=== PATIENT | male | born 1965 | race Two or more races ===

== ENCOUNTER 2016-11-03 09:16 | Inpatient (IN) | payer MEDICARE ==
[~2016-11-03] VITALS: Ht 177.8 cm; Wt 195.5 kg
[2016-11-03 09:30] VITALS: BP 112/70
--- NOTE | 2016-11-03 09:30 | Emergency Room Report ---
History of Present Illness General Chief Complaint: Chest Pain Source: Patient, EMS Present Illness HPI 51YOM BIBEMS from [facility] for acute onset SOB and substernal non- radiating chest pain when going to bathroom Was given ASA and SL nitro by EMS with improvement in symptoms Feels "ok" now. EMS rhythm strip shows ?atrial fib. No STEMI From paperwork, recent admission at [facility]: ECHO 2015: 50-55% 2016: 35-40% ?chronically elevated troponins Normal coronary angiogram april 2016 at [facility] Atrial Fib on Elliquis Allergies: Coded Allergies: PIOGLITAZONE (Verified Allergy, Unknown, 11/03/16) Uncoded Allergies: HYDROMORPHINE (Allergy, Unknown, 11/03/16) PLIOGLITAZONE (Allergy, Unknown, 11/03/16) Patient History Past Medical History: DM, HTN, CHF, AFib, other - cardiomyopathy, morbid obesity, PVD Past Surgical History: other - I&D of pressure ulcer Pertinent Family History: none Social History: Denies: alcohol use, drug use, smoking Immunizations: UTD Reviewed Nursing Documentation: PMH: Agreed, PSxH: Agreed Nursing Documentation-PMH Hx Hypertension: Yes - chf tia copd pvd Hx Diabetes: Yes Review of Systems All Other Systems: negative except mentioned in HPI Physical Exam Vital Signs Date Time Temp Pulse Resp B/P Pulse Ox O2 Delivery O2 Flow Rate FiO2 11/03/16 09:15 98.1 110 22 136/98 98 Room Air Sp02 EP Interpretation: reviewed, normal General Appearance: normal inspection, well appearing, no apparent distress, alert, GCS 15, non-toxic, obese Head: normocephalic Eyes: bilateral eye EOMI, bilateral eye PERRL ENT: normal ENT inspection, hearing grossly normal, normal voice Neck: normal inspection, full range of motion, supple, no bony tend Respiratory: normal inspection, lungs clear, normal breath sounds, no respiratory distress, no retraction, no wheezing Cardiovascular #1: regular rate, rhythm, no edema Gastrointestinal: normal inspection, normal bowel sounds, non tender, soft, no guarding, no hernia Genitourinary: no CVA tenderness Musculoskeletal: normal inspection, back normal, normal range of motion, Kyle' s Sign negative Neurologic: normal inspection, alert, oriented x3, responsive, grommet worker III-XII nml as tested, motor strength/tone normal, speech normal Psychiatric: normal inspection, judgement/insight normal, mood/affect normal Skin: normal inspection, normal color, no rash, other - Pressure dressings on left foot Medical Decision Making Diagnostic Impression: Primary Impression: Chest pain Qualified Codes: R07.9 - Chest pain, unspecified Additional Impression: CHF (congestive heart failure) Qualified Codes: I50.9 - Heart failure, unspecified ER Course Chest pain/SOB - VS with tachycardia. Not in Atrial fib with RVR - Will give low dose beta-minerva for elevated HR - patient not sure if he got Amiodarone 200mg this morning - CXR: Mild CHF. No PNA - Labs H&H stable. Mild leuks likely reactionary. Troponin 0. No metabolic abnormalities. BNP elevated Given Lasix for mild CHF exacerbation HR to 88 after low dose metoprolol Endorsed to Dr Torres at 1026am for tele admission EKG Diagnostic Results Rate: tachycardiac, other - 1st degree AV block Rhythm: NSR ST Segments: no acute changes ASA given to the pt in ED: No PA Scribe Text EMS gave aspirin Rhythm Strip Diag. Results EP Interpretation: yes Rate: 127 Rhythm: NSR, no ectopy, other - 1PVC Chest X-Ray Diagnostic Results Chest X-Ray Diagnostic Results : Chest X-Ray Ordered: Yes # of Views/Limited/Complete: 1 View Indication: Chest Pain EP Interpretation: Yes Interpretation: no consolidation, no pneumothorax, no acute cardiopulmonary disease, other - Mild CHF Interpreting ER Provider: Electronically signed by Dr Hi Last Vital Signs Date Time Temp Pulse Resp B/P Pulse Ox O2 Delivery O2 Flow Rate FiO2 11/03/16 09:15 98.1 110 22 136/98 98 Room Air Status: improved Disposition: ADMITTED INPATIENT Condition: HALI Wheeler M.D. Nov 03, 2016 09:30
[2016-11-03] MEDS ORDERED: Metoprolol 5mg/5ml Inj IVP STA (09:36)
[2016-11-03 09:41] LABS: BASOPHILS % (AUTO) 0.7 % (0.0-2.0); EOSINOPHILS % (AUTO) 3.7 % (0.0-3.0); LYMPHOCYTES % (AUTO) 12.2 % (20.0-45.0); MEAN CORPUSCULAR HEMOGLOBIN 22.1 PG (27.0-31.0); MEAN CORPUSCULAR VOLUME 79 FL (80-99); MEAN PLATELET VOLUME 7.2 FL (6.5-10.1); NEUTROPHILS % (AUTO) 79.4 % (45.0-75.0); PLATELET COUNT 303 K/UL (150-450); RED CELL DISTRIBUTION WIDTH 17.1 % (11.6-14.8); WHITE BLOOD COUNT 11.5 K/UL (4.8-10.8)
[2016-11-03 10:07] LABS: ALANINE AMINOTRANSFERASE 9 U/L (3-41); ALBUMIN/GLOBULIN RATIO 0.8 (1.0-2.7); ANION GAP 9 (5-15); ASPARTATE AMINO TRANSFERASE 30 U/L (5-40); CALCIUM 7.2 mg/dL (8.6-10.2); CARBON DIOXIDE 23 mEQ/L (20-30); CHLORIDE 105 mEQ/L (98-107); CREATININE 0.9 mg/dL (0.7-1.2); GLOMERULAR FILTRATION RATE > 60 mL/min (>60); HEMOLYSIS 147; POTASSIUM 4.9 mEQ/L (3.4-4.9); SODIUM 137 mEQ/L (135-145); TOTAL PROTEIN 5.8 g/dL (6.6-8.7); TROPONIN I < 0.30 ng/mL (<=0.30)
[2016-11-03 10:17] LABS: CKMB < 1.5 ng/mL (< 6.7)
--- NOTE | 2016-11-03 10:19 | Diagnostic Imaging Report ---
Indication: Cough Technique: XRAY CHEST 1 V Comparison:None Findings: The heart is enlarged. There is visualization of the major fissure on the left and opacification of the left lung base. Lungs are otherwise clear. Pulmonary vascularity is mildly prominent. The bones are unremarkable. Impression: Cardiomegaly. Left pleural effusion. Possibility of mild congestive heart failure cannot be excluded.
[2016-11-03] MEDS ORDERED: TRAMADOL HCL50 MG ORAL (10:25)
[2016-11-03] MEDS ORDERED: ECOTRIN81 MG PO (10:25)
[2016-11-03] MEDS ORDERED: VITAMIN D250000 UNI1 ORAL (10:25)
[2016-11-03] MEDS ORDERED: MAGOX 400400 MG ORAL (10:25)
[2016-11-03] MEDS ORDERED: HUMULIN R100 UNIT/1 SUBQ (10:25)
[2016-11-03] MEDS ORDERED: LANTUS SOL100 UNIT/1 SUBQ (10:25)
[2016-11-03] MEDS ORDERED: RESTORIL15 MG ORAL (10:25)
[2016-11-03] MEDS ORDERED: ACETAMINOPHEN120 MG RECTAL (10:25)
[2016-11-03] MEDS ORDERED: LANOXIN125 MCG ORAL (10:25)
[2016-11-03] MEDS ORDERED: ELIQUIS5 MG PO (10:25)
[2016-11-03] MEDS ORDERED: AMIODARONE HCL200 MG ORAL (10:25)
[2016-11-03] MEDS ORDERED: FUROSEMIDE40 MG ORAL (10:25)
[2016-11-03] MEDS ORDERED: CALCIUM CARBON200 M1 PO (10:25)
[2016-11-03] MEDS ORDERED: GERI-LANTA LIQ355 ML PO (10:25)
[2016-11-03] MEDS ORDERED: ACETAMINOPHEN325 M1 ORAL (10:25)
[2016-11-03 10:26] VITALS: BP 109/80
[2016-11-03 11:00] VITALS: BP 128/70
[2016-11-03] MEDS ORDERED: Miralax 17gm pkt ORAL PRN (12:00)
[2016-11-03] MEDS ORDERED: traMADol 50mg tab ORAL PRN (12:00)
[2016-11-03] MEDS ORDERED: Nitroglycerin Subl 0.4mg tab (Bottle Of 25) SL PRN (12:00)
[2016-11-03] MEDS ORDERED: Mylanta II UD 30ml ORAL PRN (12:00)
[2016-11-03] MEDS ORDERED: DuoNeb 0.5-3(2.5)mg/3ml neb HHN PRN (12:00)
--- NOTE | 2016-11-03 12:20 | Consultation ---
History of Present Illness General Date patient seen: Nov 03, 2016 Time patient seen: 11:00 Chief Complaint: Chest Pain Referring physician: dr Torres Reason for Consultation: inpatient management Present Illness HPI 51y/o male with PMH significant for A fib, HTN, DM, CHF, TIA, morbid obesity, COPD, sleep apnea BIBEMS from [facility] for acute onset of SOB and substernal non-radiating chest pain ASA and SL nitro given by EMS with improvement in symptoms Hanson slightly better EMS rhythm strip revealed ST No STEMI Recent admission at [facility]: ECHO results: 2014: 50-55% , 2016: 35-40% ?chronically elevated troponin Normal coronary angiogram in April 2016 at [facility] Atrial Fib on Eliquis workup in ED revealed mild likely reactive leukocytosis elevated pro BNP CXR with mild CHF ST on tele, no A fib in ED given low dose of BB with improvement in HR and Lasix patient was admitted for further management currently admits to intermittent chest pain, occasional SOB, on RA, pulse oximetry stable, + cough intermittent dry , no wheezing, no hemoptysis denies smoking, use of illicit drugs Allergies: Coded Allergies: HYDROMORPHONE (Unverified Allergy, Unknown, 11/03/16) PIOGLITAZONE (Verified Allergy, Unknown, 11/03/16) Uncoded Allergies: HYDROMORPHINE (Allergy, Unknown, 11/03/16) Medication History Scheduled Amiodarone Hcl* (Cordarone*), 200 MG ORAL DAILY, (Reported) Apixaban (Eliquis), 5 MG PO BID, (Reported) Aspirin (Ecotrin), 81 MG PO DAILY, (Reported) Digoxin* (Lanoxin*), 125 MCG ORAL DAILY, (Reported) Ergocalciferol (Vitamin D2)* (Vitamin D*), 50,000 UNIT ORAL ONCE A WEEK, ( Reported) Furosemide* (Lasix*), 40 MG ORAL TWICE A DAY, (Reported) Insulin Glargine (Lantus), 30 SUBQ DAILY, (Reported) Magnesium Oxide (Magox 400), 400 MG ORAL DAILY, (Reported) Scheduled PRN Acetaminophen* (Tylenol*), 120 MG RECTAL Q4H PRN for Mild Pain/Temp > 100.5, ( Reported) Acetaminophen* (Acetaminophen 325MG Tablet*), 650 MG ORAL Q4H PRN for For Pain, (Reported) Insulin Regular, Human (Humulin R), 0 SUBQ for sliding scale, (Reported) Mag Hydrox/Al Hydrox/Simeth (Sabina-Lanta Liquid), 30 ML PO EVERY 6 HOURS PRN for upset stomach, (Reported) Temazepam* (Restoril*), 15 MG ORAL BEDTIME PRN for Insomnia, (Reported) Tramadol Hcl* (Ultram*), 50 MG ORAL Q6H PRN for For Pain, (Reported) Miscellaneous Medications Calcium Carbonate (Calcium Carbonate), Unknown Dose PO, (Reported) Patient History Healthcare decision maker N Resuscitation status Advanced Directive on File Review of Systems Constitutional: Reports: weakness Eye: Reports: no symptoms ENT: Reports: no symptoms Respiratory: Reports: see HPI Cardiovascular: Reports: see HPI Gastrointestinal: Reports: no symptoms Genitourinary: Reports: no symptoms Musculoskeletal: Reports: no symptoms Skin: Reports: other - left lower leg wound after popped off blister Psychiatric: Reports: no symptoms Neurological: Reports: no symptoms Endocrine: Reports: other - DM Physical Exam General Appearance: WD/WN, alert, other - A/A/O x 4 morbidly obese Lines, tubes and drains: peripheral HEENT: normocephalic, atraumatic, anicteric, mucous membranes moist, PERRL, supple Neck: non-tender Respiratory/Chest: lungs clear - diminished BS Cardiovascular/Chest: tachycardia - ST on tele 120th Abdomen: normal bowel sounds, non tender, soft - obese Skin Exam: warm/dry, other - left lower leg wound Neurologic: abnormal gait, alert, oriented x 3, responsive, normal mood/affect Musculoskeletal: normal muscle bulk Last 24 Hour Vital Signs Date Time Temp Pulse Resp B/P Pulse Ox O2 Delivery O2 Flow Rate FiO2 11/03/16 11:25 98.1 126 15 109/80 98 Room Air 105 11/03/16 10:26 98.1 105 15 109/80 98 Room Air 11/03/16 10:26 105 15 Room Air 11/03/16 09:41 126 112/70 11/03/16 09:30 98.1 126 17 112/70 98 Room Air 11/03/16 09:15 98.1 110 22 136/98 98 Room Air Laboratory Tests Test 11/03/16 09:30 11/03/16 09:31 White Blood Count 11.5 K/UL (4.8-10.8) H Red Blood Count 5.60 M/UL (4.70-6.10) Hemoglobin 12.4 G/DL (14.2-18.0) L Hematocrit 44.1 % (42.0-52.0) Mean Corpuscular Volume 79 FL (80-99) L Mean Corpuscular Hemoglobin 22.1 PG (27.0-31.0) L Mean Corpuscular Hemoglobin Concent 28.0 G/DL (32.0-36.0) L Red Cell Distribution Width 17.1 % (11.6-14.8) H Platelet Count 303 K/UL (150-450) Mean Platelet Volume 7.2 FL (6.5-10.1) Neutrophils (%) (Auto) 79.4 % (45.0-75.0) H Lymphocytes (%) (Auto) 12.2 % (20.0-45.0) L Monocytes (%) (Auto) 4.0 % (1.0-10.0) Eosinophils (%) (Auto) 3.7 % (0.0-3.0) H Basophils (%) (Auto) 0.7 % (0.0-2.0) Sodium Level 137 mEQ/L (135-145) Potassium Level 4.9 mEQ/L (3.4-4.9) Chloride Level 105 mEQ/L (98-107) Carbon Dioxide Level 23 mEQ/L (20-30) Anion Gap 9 (5-15) Blood Urea Nitrogen 18 mg/dL (7-23) Creatinine 0.9 mg/dL (0.7-1.2) Estimat Glomerular Filtration Rate > 60 mL/min (>60) Glucose Level 179 mg/dL (74-106) H Calcium Level 7.2 mg/dL (8.6-10.2) L Total Bilirubin 0.8 mg/dL (0.0-1.2) Aspartate Amino Transf (AST/SGOT) 30 U/L (5-40) Alanine Aminotransferase (ALT/SGPT) 9 U/L (3-41) Alkaline Phosphatase 65 U/L (40-129) Total Creatine Kinase 30 U/L (38-174) L Creatine Kinase MB < 1.5 ng/mL (< 6.7) Creatine Kinase MB Relative Index 5.0 Troponin I < 0.30 ng/mL (<=0.30) Pro-B-Type Natriuretic Peptide 6307 pg/mL (0-125) H Total Protein 5.8 g/dL (6.6-8.7) L Albumin 2.6 g/dL (3.5-5.2) L Globulin 3.2 g/dL Albumin/Globulin Ratio 0.8 (1.0-2.7) L Urine Opiates Screen Negative (NEGATIVE) Urine Barbiturates Screen Negative (NEGATIVE) Phencyclidine (PCP) Screen Negative (NEGATIVE) Urine Amphetamines Screen Positive (NEGATIVE) H Urine Benzodiazepines Screen Negative (NEGATIVE) Urine Cocaine Screen Negative (NEGATIVE) Urine Marijuana (THC) Screen Negative (NEGATIVE) Height (Feet): 5 Height (Inches): 10.00 Weight (Pounds): 420 Medications Current Medications Medications (Trade) Dose Ordered Sig/Lexii Route PRN Reason Start Time Stop Time Status Last Admin Dose Admin Acetaminophen (Tylenol) 650 mg ONCE PRN ORAL For Pain 11/03/16 11:30 11/03/16 23:59 Dextrose (Dextrose 50%) STAT PRN IV Hypoglycemia 11/03/16 11:30 12/03/16 11:29 Assessment/Plan Assessment/Plan ASSESSMENT chest pain r/o ACS probably acute systolic and diastolic heart failure dilated cardiomyopathy PAF PVD morbid obesity MARBELLA DM Hx of HTN PVD COPD left lower leg wound possible abscess PLAN OF CARE tele serial troponin ECHO cardio eval per PMD Lasix gtt monitor renal parameters, lytes, I/O trend pro BNP, CXR O2 HHN prn, keep sat above 92% ASA A/coagulation with Eliquis ( as in SNF), rate control , continue Amiodarone and Digoxin medical management of CHF as per cardio check lipid panel, TSH, Mg BS management with SS of insulin, get HgA1c pain management podiatry eval for possible foot abscess wound nurse eval bowel regimen case discussed and evaluated by supervising physician Hasmukh Vega)Milana NP Nov 03, 2016 12:20
--- NOTE | 2016-11-03 14:21 | History & Physical ---
History and Physical History & Physicial Dictated for Int med-Dr Torres no. [id number]. AMITA NEAL Nov 03, 2016 14:21
[2016-11-03 15:52] LABS: TROPONIN I < 0.30 ng/mL (<=0.30)
[2016-11-03 16:00] VITALS: BP 136/81
--- NOTE | 2016-11-03 16:24 | Cardiac Electrophysiology PN ---
Subjective Subjective [id number]. EF 10%, PAF in SR, morbid obesity 420lbs Objective Last 24 Hour Vital Signs Date Time Temp Pulse Resp B/P Pulse Ox O2 Delivery O2 Flow Rate FiO2 11/03/16 12:00 94 11/03/16 11:43 115 11/03/16 11:25 98.1 126 15 109/80 98 Room Air 105 11/03/16 11:00 97.7 63 18 128/70 100 11/03/16 10:26 98.1 105 15 109/80 98 Room Air 11/03/16 10:26 105 15 Room Air 11/03/16 09:41 126 112/70 11/03/16 09:30 98.1 126 17 112/70 98 Room Air 11/03/16 09:15 98.1 110 22 136/98 98 Room Air Laboratory Tests Test 11/03/16 09:30 11/03/16 09:31 11/03/16 12:20 White Blood Count 11.5 K/UL (4.8-10.8) H Red Blood Count 5.60 M/UL (4.70-6.10) Hemoglobin 12.4 G/DL (14.2-18.0) L Hematocrit 44.1 % (42.0-52.0) Mean Corpuscular Volume 79 FL (80-99) L Mean Corpuscular Hemoglobin 22.1 PG (27.0-31.0) L Mean Corpuscular Hemoglobin Concent 28.0 G/DL (32.0-36.0) L Red Cell Distribution Width 17.1 % (11.6-14.8) H Platelet Count 303 K/UL (150-450) Mean Platelet Volume 7.2 FL (6.5-10.1) Neutrophils (%) (Auto) 79.4 % (45.0-75.0) H Lymphocytes (%) (Auto) 12.2 % (20.0-45.0) L Monocytes (%) (Auto) 4.0 % (1.0-10.0) Eosinophils (%) (Auto) 3.7 % (0.0-3.0) H Basophils (%) (Auto) 0.7 % (0.0-2.0) Sodium Level 137 mEQ/L (135-145) Potassium Level 4.9 mEQ/L (3.4-4.9) Chloride Level 105 mEQ/L (98-107) Carbon Dioxide Level 23 mEQ/L (20-30) Anion Gap 9 (5-15) Blood Urea Nitrogen 18 mg/dL (7-23) Creatinine 0.9 mg/dL (0.7-1.2) Estimat Glomerular Filtration Rate > 60 mL/min (>60) Glucose Level 179 mg/dL (74-106) H Calcium Level 7.2 mg/dL (8.6-10.2) L Total Bilirubin 0.8 mg/dL (0.0-1.2) Aspartate Amino Transf (AST/SGOT) 30 U/L (5-40) Alanine Aminotransferase (ALT/SGPT) 9 U/L (3-41) Alkaline Phosphatase 65 U/L (40-129) Total Creatine Kinase 30 U/L (38-174) L Creatine Kinase MB < 1.5 ng/mL (< 6.7) Creatine Kinase MB Relative Index 5.0 Troponin I < 0.30 ng/mL (<=0.30) < 0.30 ng/mL (<=0.30) Pro-B-Type Natriuretic Peptide 6307 pg/mL (0-125) H Total Protein 5.8 g/dL (6.6-8.7) L Albumin 2.6 g/dL (3.5-5.2) L Globulin 3.2 g/dL Albumin/Globulin Ratio 0.8 (1.0-2.7) L Urine Opiates Screen Negative (NEGATIVE) Urine Barbiturates Screen Negative (NEGATIVE) Phencyclidine (PCP) Screen Negative (NEGATIVE) Urine Amphetamines Screen Positive (NEGATIVE) H Urine Benzodiazepines Screen Negative (NEGATIVE) Urine Cocaine Screen Negative (NEGATIVE) Urine Marijuana (THC) Screen Negative (NEGATIVE) DAVID BRITO Nov 03, 2016 16:24
--- NOTE | 2016-11-03 16:30 | History and Physical Report ---
DATE OF ADMISSION: 11/03/2016 CHIEF COMPLAINT: The patient is a 51-year-old male, who presents with chief complaint of chest pain and shortness of breath. HISTORY OF PRESENT ILLNESS: The patient was admitted to [facility] in [place] in 09/2016. The patient was admitted with elevated troponin at that time. The patient has history of dilated cardiomyopathy. The patient was discharged to [facility]. According to the patient, he began to experience shortness of breath last evening. The patient then began to experience chest pain. Chest pain is substernal. There is no radiation to the jaw or to the shoulder. The patient was transported from [facility] to [place] [facility]. The patient was admitted for chest pain to rule out acute coronary syndrome. REVIEW OF SYSTEMS: Constitutional: The patient denies weight loss or weight gain. The patient denies fevers or chills. HEENT: The patient denies ear or throat pain. The patient denies headache. Cardiovascular: The patient complains of chest pain as above. The patient denies palpitations. Chest: The patient complains of shortness of breath as above. The patient denies wheezing. Abdomen: The patient denies nausea, vomiting, diarrhea, or constipation. Genitourinary: The patient denies dysuria or increased frequency of urination. Neuromuscular: The patient denies seizures or generalized weakness. PAST MEDICAL HISTORY: Significant for: 1. Nonischemic cardiomyopathy. 2. Congestive heart failure, systolic. 3. Atrial fibrillation. 4. Diabetes type 2. 5. Morbid obesity. 6. Chronic venous stasis changes in bilateral lower extremity. 7. Hypertension. 8. Hypercholesterolemia. 9. Peripheral vascular disease. 10. Chronic obstructive pulmonary disease. 11. Coronary artery disease, status post angiogram in 04/2016. PAST SURGICAL HISTORY: Significant for: 1. Coronary angiogram in 04/2016 as above. 2. Incision and drainage of left foot abscess. 3. Open cholecystectomy in the . CURRENT MEDICATIONS: 1. Calcium carbonate 2 tablets p.o. q.8 hours. 2. Amiodarone 200 mg one tablet p.o. daily. 3. Aspirin 81 mg one tablet p.o. daily. 4. Eliquis 5 mg p.o. twice daily. 5. Regular insulin sliding scale. 6. Digoxin 0.125 mg p.o. daily. 7. Lantus 30 units subcutaneously nightly. 8. Lasix 40 mg one tablet p.o. daily. 9. Magnesium oxide 400 mg one tablet p.o. daily. 10. Restoril 15 mg one tablet p.o. nightly. 11. Tramadol 50 mg one tablet p.o. q.6 hours p.r.n. 12. Tylenol 650 mg p.o. q.4 hours p.r.n. 13. Vitamin D2 50,000 units daily. ALLERGIES: To Dilaudid and Actos. SOCIAL HISTORY: The patient is . The patient is disabled. The patient denies tobacco or alcohol use. PHYSICAL EXAMINATION: VITAL SIGNS: Temperature 98.1, respirations 17-22, blood pressure 109-136 over 70-98, and pulse 105-126. GENERAL: The patient is well developed, well nourished, obese white male in no apparent distress. HEENT: Eyes, pupils are equal and responsive to light and accommodation. Extraocular movements are intact. NECK: Supple without lymphadenopathy. CHEST: Lungs are clear to auscultation bilaterally without wheezes or rales. CARDIOVASCULAR: Regular rhythm and rate. S1, S2 are normal without murmurs, rubs, or gallops. ABDOMEN: Soft, nontender, and nondistended. Positive bowel sounds. No evidence of hepatosplenomegaly. Currently, no rebound or guarding. EXTREMITIES: The left foot is in a dressing, otherwise extremities are without clubbing, cyanosis, or edema. RECTAL: Refused. GENITAL: Refused. NEUROLOGIC: Cranial nerves II through XII are grossly intact without focal deficits. Motor strength is 5/5 bilaterally. Deep tendon reflexes are 2+ plantar. LABORATORY STUDIES: WBC 11.5, hemoglobin 12.4, hematocrit 44.1, platelets 303,000. Sodium 137, potassium 4.9, chloride 105, CO2 23, BUN 18, creatinine 0.9, glucose 179. Troponin less than 0.3. BNP elevated at 6307. ASSESSMENT: This is a 51-year-old male with: 1. Chest pain. 2. Shortness of breath. 3. Nonischemic cardiomyopathy. 4. Systolic congestive heart failure. 5. Atrial fibrillation. 6. Left foot abscess. 7. Diabetes type 2. 8. Hypertension. 9. Hypercholesterolemia. 10. Peripheral vascular disease. 11. Obesity. 12. Chronic obstructive pulmonary disease. 13. Obstructive sleep apnea. TREATMENT: 1. Shortness of breath. This may be secondary to chest pain. Pulmonary consultation has been obtained with Dr. Ann Gongora. 2. Chest pain. Cardiology consultation obtained with Dr. Mehdi Little. Serial troponin levels will be run. This may be acute coronary syndrome given the history of coronary artery disease earlier in 2017. We will follow recommendations of Cardiology. 3. Nonischemic cardiomyopathy. 4. Systolic congestive heart failure. 5. Atrial fibrillation. Continue amiodarone and digoxin as above. Continue Eliquis as above. We will follow recommendation of Cardiology, Dr. Mehdi Little. 6. Left foot abscess. Podiatry consultation has been obtained with Dr. Xie. We will follow recommendation of podiatry. 7. Diabetes type 2. Continue NovoLog sliding scale and Lantus as above. 8. Hypertension. Continue Lasix as above. 9. Hypercholesterolemia. 10. Peripheral vascular disease. 11. Obesity. 12. Chronic obstructive pulmonary disease. See Pulmonary consultation by Dr. Ann Gongora. 13. Obstructive sleep apnea. See pulmonary consultation by Dr. Ann Gongora. Martir Vang M.D. DR: Ion JOB#: [id number] CC:
[2016-11-03] MEDS: NovoLOG Insulin Flexpen SUBQ SCH ×2 (18:06→21:23)
[2016-11-03] MEDS: Eliquis 2.5mg tablet ORAL SCH (18:24)
[2016-11-03 20:43] VITALS: BP 117/71
[2016-11-03] MEDS ORDERED: Heparin 5000 units/ml inj SUBQ SCH (21:00)
--- NOTE | 2016-11-03 23:30 | Consultation ---
DATE OF CONSULTATION: 11/03/2016 CARDIOLOGY CONSULTATION CONSULTING PHYSICIAN: Baljit Irvin M.D. REFERRING PHYSICIAN: Ann Gongora M.D. REASON FOR REFERRAL: Chest pain and cardiomyopathy. HISTORY OF PRESENT ILLNESS: This is a 51-year-old gentleman with history of multiple medical problems, basically cardiomyopathy, dilated in origin; atrial fibrillation; congestive heart failure, chronic and acute systolic, diastolic; chronic leg edema; diabetes; and massive overt obesity. Apparently, he was recently hospitalized at [facility]. He is known to have abnormal cardiac enzymes chronically and he has had a cardiac catheterization reportedly at [place] approximately 6 months ago and apparently normal coronaries reported on his prior report. Nevertheless, from the acute hospital, he was transferred to convalescent facility and unfortunately, it appears that he did not receive his diuretics initially until his started complaining and 7 to 10 days later, he was restarted on his diuretics. In the meantime, he started to get short of breath this morning. He was having some chest pains again and paramedics were summoned. The patient did get some nitroglycerin, which helped him somewhat. With the shortness of breath ongoing, he was transferred to the emergency room at the [facility] and has been admitted. He has been started on a Lasix drip since this morning and has had significant improvement in his symptoms. He has no dizziness or lightheadedness. He does not have any PND. He does have 2-pillow usage for basically his back, not for his orthopnea and not really ambulatory because of leg swelling and issues requiring dressings on this left foot, and no heart pounding or palpitation. PAST MEDICAL HISTORY: Listed in the chart as nonischemic cardiomyopathy; congestive heart failure, systolic; and history of cardiac arrhythmias, apparently atrial fibrillation, chronic in origin, on chronic anticoagulation. He has diabetes mellitus, morbid obesity, and history of transient ischemic attack. Apparently, there is a report here stating he had coronary angiogram also to evaluate his low ejection fraction, which showed him to have nonobstructive disease and he has had blisters on his feet, for which he has received some treatment including dressing changes and now is at a convalescent facility secondary to multiple pressure ulcers on the lower extremities. He has had a history of cholecystectomy according to his chart. ALLERGIES: He is allergic to Dilaudid and Actos. SOCIAL HISTORY: He does not smoke or drink. He used drugs. He is right now at a convalescent facility. Previously, he has been living at home. He is on disability. He is and he has used tobacco, alcohol, and drugs when he was a teenager he says. REVIEW OF SYSTEMS: Gastrointestinal: Positive for vomiting today. He has been constipated, part of the constipation resulted in him having to strain and have some bloody stools, otherwise negative. Genitourinary: Negative. Pulmonary: Negative. Constitutional: Negative. Neurologic: Negative. PHYSICAL EXAMINATION: GENERAL: A morbidly obese, young gentleman, in no apparent respiratory distress. He is on a Lasix drip. VITAL SIGNS: Blood pressure anywhere between 109/80 to 122/70, temperature is 98.1 degrees, and heart rate is 95 to 126. NECK: Supple. LUNGS: Appear to show very few crackles noted at the bases. Air entry appears to be fair. CARDIAC: Irregularly irregular. Tachycardic. No heaves or thrills noted. ABDOMEN: Obese. Positive bowel sounds. EXTREMITIES: 2+ edema of the lower extremities bilaterally. LABORATORY VALUES: White count is 11.5, hemoglobin 12.4, and platelet count of 303,000. Sodium is 137, potassium 4.9, chloride 105, bicarbonate 23, BUN of 18, creatinine 0.9, and glucose of 179. Two sets of cardiac enzymes are negative. Three hours apart, proBNP of 6300. Albumin of 2.6. Toxicology screen positive for amphetamines. IMAGING: Chest x-ray was performed today that showed cardiomegaly and left-sided pleural effusion. Telemetry shows atrial fibrillation, ventricular response at times elevated. EKG again shows atrial fibrillation, tachycardic at a rate of 128. His ejection fraction by echo that was performed, preliminary report, shows 10% to 15% ejection fraction, severe left ventricular enlargement, severe global hypokinesis being noted dilated IVC, and pulmonary artery systolic pressure of 46 based on the preliminary report. ASSESSMENT AND PLAN: 1. Acute congestive heart failure on chronic congestive heart failure. 2. Dilated cardiomyopathy. 3. Prominent atrial fibrillation. 4. History of transient ischemic attack. 5. Hypertension history. 6. Diabetes mellitus. 7. Hyperlipidemia. 8. Morbid obesity. 9. Chest pains with reportedly nonobstructive cardiac catheterization in [address] [place] Gongora, this patient was seen in cardiac consultation. I agree with the Jose bazan. He should be continued on at least low dose of BORIS inhibitors as possible. He is on amiodarone, although he appears to be in atrial fibrillation. I am not sure the amiodarone will do any good. He is on digoxin as well. He is on Eliquis to be continued and nitroglycerin seems to help him with the pain even though he has no significant coronary disease. If his blood pressure allows, long-acting nitrates may be considered. Continue with lipid-lowering medication. The patient will be followed. Further recommendations as become necessary. It appears that Dr. Little is also following the patient. He will likely require in the future an intracardiac defibrillator. I will see on an as needed basis. Baljit Irvin M.D. DR: Katy JOB#: [id number] CC:
[2016-11-04] VITALS (7 sets, daily range): BP systolic 116–138; BP diastolic 65–90
--- NOTE | 2016-11-04 00:45 | Consultation ---
DATE OF CONSULTATION: 11/03/2016 CARDIOLOGY CONSULTATION CONSULTING PHYSICIAN: Mehdi Little M.D. REFERRING PHYSICIAN: Kip Torres M.D. REASON FOR CONSULTATION: Management of hypertension, atrial fibrillation, and chest pain. HISTORY OF PRESENT ILLNESS: The patient is a 51-year-old gentleman with history of morbid obesity who used to be more than 600 pounds and currently is 421 pounds. The patient has a history of hypertension, diabetes, paroxysmal atrial fibrillation, as well as history of congestive heart failure, TIA, and morbid obesity. The patient was on Eliquis for atrial fibrillation . The patient also has COPD and sleep apnea. He was brought in from [facility] with acute onset of shortness of breath and chest pain. He was admitted and Cardiology consultation was obtained for further evaluation and management. REVIEW OF SYSTEMS: Performed and was negative other than what was mentioned in the history of present illness. PAST MEDICAL HISTORY: 1. Hypertension. 2. Diabetes. 3. Congestive heart failure. 4. TIA. 5. Paroxysmal atrial fibrillation. 6. Morbid obesity. 7. COPD. 8. Obstructive sleep apnea. FAMILY HISTORY: Noncontributory. SOCIAL HISTORY: He lives at a care home and does not smoke or drink alcohol. PHYSICAL EXAMINATION: VITAL SIGNS: Blood pressure 190/80, pulse 120, but subsequently improved to 94, respirations 18. NECK: Mild JVD. LUNGS: Decreased breath sounds. CARDIOVASCULAR: Distant heart sounds and irregular. No gallop or rub. ABDOMEN: Morbidly obese. EXTREMITIES: A 2+ pitting edema. LABORATORY DATA: His labs show white count 11.5, hemoglobin 12.4, and hematocrit 41. Sodium was 137, potassium 4.9, BUN 18, creatinine of 0.9, and glucose 179. Troponin negative x2. His BNP is 6307. His urine toxicology screen is positive for amphetamine. ASSESSMENT AND PLAN: 1. Chest pain. This is likely due to congestive heart failure in this patient with severe cardiomyopathy. His echocardiogram showed ejection fraction of only 10% to 15%. We will start him on IV Lasix drip at 10 mg/hour. We will add Coreg, lisinopril, and Aldactone to his medical regimen as well. After stabilization, the patient will need evaluation, I am not sure in view of his weight of more than 420 pounds that obviously he will not be able to walk on a treadmill. 2. Paroxysmal atrial fibrillation, currently in sinus rhythm/sinus tachycardia. Continue amiodarone 200 mg daily and Eliquis 5 mg b.i.d. The patient is also on digoxin 0.125 mg daily. 3. Hypertension, on Lasix and add Coreg, and add lisinopril and Aldactone to his medical regimen. 4. Morbid obesity, more than 420 pounds. 5. History of transient ischemic attack. 6. Diabetes. 7. History of sleep apnea. Thank very much, Dr. Torres, for allowing me to participate in the care of this patient. Please do not hesitate to contact me for any questions regarding my evaluation. Mehdi Little M.D. DR: PRINCE JOB#: [id number] CC:
[2016-11-04 06:45] LABS: ABG ALLEN TEST POSITIVE; ABG BASE EXCESS 4.9; ABG PCO2 44.3 mmHg (35.0-45.0)
[2016-11-04] MEDS: NovoLOG Insulin Flexpen SUBQ SCH ×4 (06:50→21:01)
[2016-11-04] MEDS: Digoxin 0.125mg tab ORAL SCH (09:16)
[2016-11-04] MEDS: Amiodarone 200mg tab ORAL SCH (09:16)
[2016-11-04] MEDS: Spironolactone 25mg tab ORAL SCH (09:16)
[2016-11-04] MEDS: Aspirin Baby 81mg ORAL SCH (09:16)
[2016-11-04] MEDS: Lisinopril 10mg tab ORAL SCH (09:17)
[2016-11-04] MEDS: Eliquis 2.5mg tablet ORAL SCH ×2 (09:20→18:39)
[2016-11-04 10:08] LABS: BASOPHILS % (AUTO) 2.5 % (0.0-2.0); EOSINOPHILS % (AUTO) 5.8 % (0.0-3.0); LYMPHOCYTES % (AUTO) 9.5 % (20.0-45.0); MEAN CORPUSCULAR HEMOGLOBIN 22.2 PG (27.0-31.0); MEAN CORPUSCULAR HGB CONC 28.1 G/DL (32.0-36.0); MEAN CORPUSCULAR VOLUME 79 FL (80-99); MEAN PLATELET VOLUME 7.1 FL (6.5-10.1); MONOCYTES % (AUTO) 7.6 % (1.0-10.0); NEUTROPHILS % (AUTO) 74.6 % (45.0-75.0); PLATELET COUNT 260 K/UL (150-450); RED BLOOD COUNT 5.43 M/UL (4.70-6.10); WHITE BLOOD COUNT 8.1 K/UL (4.8-10.8)
[2016-11-04 10:25] LABS: CALCIUM 8.7 mg/dL (8.6-10.2); CARBON DIOXIDE 28 mEQ/L (20-30); CHOLESTEROL 78 mg/dL (< 200); CHOLESTEROL/HDL RATIO 3.1 (3.3-4.4); CREATININE 1.2 mg/dL (0.7-1.2); GLOMERULAR FILTRATION RATE > 60 mL/min (>60); HEMOLYSIS 1; LDL CHOLESTEROL (CALC.) 37 mg/dL (60-99); MAGNESIUM 1.6 mg/dL (1.7-2.5)
[2016-11-04 10:40] LABS: ANION GAP 13 (5-15); CHLORIDE 97 mEQ/L (98-107); POTASSIUM 4.2 mEQ/L (3.4-4.9); SODIUM 138 mEQ/L (135-145)
[2016-11-04 11:00] LABS: TROPONIN I < 0.30 ng/mL (<=0.30)
--- NOTE | 2016-11-04 14:12 | Cardiology Progress Note ---
Assessment/Plan Assessment/Plan 1. Acute congestive heart failure on chronic congestive heart failure. 2. Dilated cardiomyopathy. 3. Permanent atrial fibrillation. 4. History of transient ischemic attack. 5. Hypertension history. 6. Diabetes mellitus. 7. Hyperlipidemia. 8. Morbid obesity. 9. Chest pains with reportedly nonobstructive cardiac catheterization in 2017 at [place]. alredy better on the lasix drip still with sig edema no myonecrosis labs ntoed eliquis adn rate control on acie ane bb not sure need amiod if perm afib but ok to use if paroxysmal afib Subjective Cardiovascular: Denies: chest pain, lightheadedness Respiratory: Reports: shortness of breath Gastrointestinal/Abdominal: Denies: abdominal pain Genitourinary: Denies: burning Objective Last 24 Hour Vital Signs Date Time Temp Pulse Resp B/P Pulse Ox O2 Delivery O2 Flow Rate FiO2 11/04/16 12:00 93 11/04/16 12:00 97.3 90 20 122/71 100 Room Air 11/04/16 09:17 94 124/65 11/04/16 09:17 124/65 11/04/16 09:16 94 11/04/16 08:00 97.3 94 19 124/65 95 Room Air 11/04/16 08:00 96 11/04/16 07:28 73 18 Room Air 11/04/16 04:00 94 11/04/16 04:00 97.7 73 18 116/65 99 Room Air 11/04/16 00:00 97.7 74 20 120/75 96 Room Air 11/04/16 00:00 104 11/03/16 21:22 78 117/71 11/03/16 20:43 97.5 78 20 117/71 95 Room Air 11/03/16 20:00 94 11/03/16 16:00 95.9 80 20 136/81 95 Room Air 11/03/16 16:00 93 General Appearance: no apparent distress, alert, obese Neck: supple Cardiovascular: irregularly irregular Respiratory/Chest: lungs clear, normal breath sounds Abdomen: normal bowel sounds, non tender, soft Extremities: moderate edema Intake and Output 11/03/16 11/04/16 19:00 07:00 Intake Total 40 ml 120 ml Output Total 200 ml 2052 ml Balance -160 ml -1932 ml IV Total 40 ml 120 ml Output Urine Total 200 ml 2052 ml # Voids 1 Laboratory Tests Test 11/04/16 06:30 11/04/16 09:45 Arterial Blood pH 7.440 (7.350-7.450) Arterial Blood Partial Pressure CO2 44.3 mmHg (35.0-45.0) Arterial Blood Partial Pressure O2 66.3 mmHg (75.0-100.0) L Arterial Blood HCO3 29.6 mmol/L (22.0-26.0) H Arterial Blood Oxygen Saturation 92.2 % (92.0-98.0) Arterial Blood Base Excess 4.9 Artie Test Positive White Blood Count 8.1 K/UL (4.8-10.8) Red Blood Count 5.43 M/UL (4.70-6.10) Hemoglobin 12.0 G/DL (14.2-18.0) L Hematocrit 42.9 % (42.0-52.0) Mean Corpuscular Volume 79 FL (80-99) L Mean Corpuscular Hemoglobin 22.2 PG (27.0-31.0) L Mean Corpuscular Hemoglobin Concent 28.1 G/DL (32.0-36.0) L Red Cell Distribution Width 17.0 % (11.6-14.8) H Platelet Count 260 K/UL (150-450) Mean Platelet Volume 7.1 FL (6.5-10.1) Neutrophils (%) (Auto) 74.6 % (45.0-75.0) Lymphocytes (%) (Auto) 9.5 % (20.0-45.0) L Monocytes (%) (Auto) 7.6 % (1.0-10.0) Eosinophils (%) (Auto) 5.8 % (0.0-3.0) H Basophils (%) (Auto) 2.5 % (0.0-2.0) H Sodium Level 138 mEQ/L (135-145) Potassium Level 4.2 mEQ/L (3.4-4.9) Chloride Level 97 mEQ/L (98-107) L Carbon Dioxide Level 28 mEQ/L (20-30) Anion Gap 13 (5-15) Blood Urea Nitrogen 22 mg/dL (7-23) Creatinine 1.2 mg/dL (0.7-1.2) Estimat Glomerular Filtration Rate > 60 mL/min (>60) Glucose Level 246 mg/dL (74-106) H Hemoglobin A1c 10.0 % (< 6.0) H Calcium Level 8.7 mg/dL (8.6-10.2) # Magnesium Level 1.6 mg/dL (1.7-2.5) L Troponin I < 0.30 ng/mL (<=0.30) Pro-B-Type Natriuretic Peptide 6633 pg/mL (0-125) H Triglycerides Level 81 mg/dL (< 150) Cholesterol Level 78 mg/dL (< 200) LDL Cholesterol 37 mg/dL (60-99) L HDL Cholesterol 25 mg/dL (> 60) Cholesterol/HDL Ratio 3.1 (3.3-4.4) L Thyroid Stimulating Hormone (TSH) 3.600 uIU/mL (0.300-4.500) Microbiology Date/Time Source Procedure Growth Status 11/03/16 08:05 Sacral Wound Gram Stain - Final Resulted 11/03/16 08:05 Sacral Wound Wound Culture - Preliminary Resulted ARI ROWLEY Nov 04, 2016 14:12
--- NOTE | 2016-11-04 14:49 | Internal Med Progress Note ---
Subjective Date of Service: Nov 04, 2016 Physician Name Amita Neal Attending Physician Kip Torres MD Current Medications Medications (Trade) Dose Ordered Sig/Lexii Route PRN Reason Start Time Stop Time Status Last Admin Dose Admin Acetaminophen (Tylenol) 650 mg Q4H PRN ORAL Mild Pain (Pain Scale 1-3) 11/03/16 12:00 12/03/16 11:59 Al Hydroxide/Mg Hydroxide 30 ml 30 ml Q6H PRN ORAL dyspepsia 11/03/16 12:00 12/03/16 11:59 Albuterol/ Ipratropium (DuoNeb 0.5-3(2.5)mg/3ml) 3 ml Q6H PRN HHN Shortness of Breath 11/03/16 12:00 11/08/16 11:59 Amiodarone HCl (Cordarone) 200 mg DAILY ORAL 11/04/16 09:00 12/04/16 08:59 11/04/16 09:16 Apixaban (Eliquis) 5 mg BID ORAL 11/03/16 18:00 12/03/16 17:59 11/04/16 09:20 Aspirin (ASA) 81 mg DAILY ORAL 11/04/16 09:00 12/04/16 08:59 11/04/16 09:16 Carvedilol (Coreg) 3.125 mg EVERY 12 HOURS ORAL 11/03/16 21:00 12/03/16 20:59 11/04/16 09:17 Dextrose (Dextrose 50%) STAT PRN IV Hypoglycemia 11/03/16 12:15 12/03/16 12:14 Digoxin (Lanoxin) 0.125 mg DAILY ORAL 11/04/16 09:00 12/04/16 08:59 11/04/16 09:16 Furosemide/ Dextrose (Lasix/D5W) 100 ml @ 10 mls/hr Q10H IV 11/03/16 14:00 12/03/16 13:59 11/04/16 10:43 Insulin Aspart (NovoLOG) BEFORE MEALS AND HS SUBQ 11/03/16 16:30 12/03/16 16:29 11/04/16 11:46 Lisinopril (Zestril) 10 mg DAILY ORAL 11/04/16 09:00 12/04/16 08:59 11/04/16 09:17 Nitroglycerin (Ntg) 0.4 mg Q5M PRN SL Prn Chest Pain 11/03/16 12:00 12/03/16 11:59 Ondansetron HCl (Zofran) 4 mg Q6H PRN IVP Nausea & Vomiting 11/03/16 12:00 12/03/16 11:59 Polyethylene Glycol (Miralax) 17 gm DAILYPRN PRN ORAL Constipation 11/03/16 12:00 12/03/16 11:59 Spironolactone (Aldactone) 25 mg DAILY ORAL 11/04/16 09:00 12/04/16 08:59 11/04/16 09:16 Temazepam (Restoril) 15 mg DAILYPRN PRN ORAL Insomnia 11/03/16 12:00 11/10/16 11:59 Tramadol HCl (Ultram) 50 mg Q6H PRN ORAL Moderate Pain (Pain Scale 4-6) 11/03/16 12:00 11/10/16 11:59 Allergies: Coded Allergies: HYDROMORPHONE (Unverified Allergy, Unknown, 11/03/16) PIOGLITAZONE (Verified Allergy, Unknown, 11/03/16) Uncoded Allergies: HYDROMORPHINE (Allergy, Unknown, 11/03/16) ROS Limited/Unobtainable: No Constitutional: Reports: no symptoms HEENT: Reports: no symptoms Cardiovascular: Reports: chest pain Respiratory: Reports: no symptoms Gastrointestinal/Abdominal: Reports: no symptoms Genitourinary: Reports: no symptoms Neurologic/Psychiatric: Reports: no symptoms Subjective 51 YO M admitted with shortness of breath and chest pain. Cover for Int Lang Torres Objective Last Vital Signs Date Time Temp Pulse Resp B/P Pulse Ox O2 Delivery O2 Flow Rate FiO2 11/04/16 12:00 93 11/04/16 12:00 97.3 20 122/71 100 Room Air General Appearance: no apparent distress, alert, obese EENT: PERRL/EOMI, normal ENT inspection Neck: non-tender, normal alignment, supple Cardiovascular: normal peripheral pulses, normal rate, regular rhythm, no gallop/murmur, no JVD Respiratory/Chest: chest wall non-tender, crackles/rales, rhonchi - bilaterally , expiratory wheezing Abdomen: normal bowel sounds, non tender, soft, no organomegaly, no mass Extremities: normal range of motion, non-tender Edema: trace edema Neurologic: speech communication instructor II-XII grossly normal, no motor/sensory deficits Skin: normal pigmentation, warm/dry Laboratory Tests Test 11/04/16 06:30 11/04/16 09:45 Arterial Blood pH 7.440 (7.350-7.450) Arterial Blood Partial Pressure CO2 44.3 mmHg (35.0-45.0) Arterial Blood Partial Pressure O2 66.3 mmHg (75.0-100.0) L Arterial Blood HCO3 29.6 mmol/L (22.0-26.0) H Arterial Blood Oxygen Saturation 92.2 % (92.0-98.0) Arterial Blood Base Excess 4.9 Artie Test Positive White Blood Count 8.1 K/UL (4.8-10.8) Red Blood Count 5.43 M/UL (4.70-6.10) Hemoglobin 12.0 G/DL (14.2-18.0) L Hematocrit 42.9 % (42.0-52.0) Mean Corpuscular Volume 79 FL (80-99) L Mean Corpuscular Hemoglobin 22.2 PG (27.0-31.0) L Mean Corpuscular Hemoglobin Concent 28.1 G/DL (32.0-36.0) L Red Cell Distribution Width 17.0 % (11.6-14.8) H Platelet Count 260 K/UL (150-450) Mean Platelet Volume 7.1 FL (6.5-10.1) Neutrophils (%) (Auto) 74.6 % (45.0-75.0) Lymphocytes (%) (Auto) 9.5 % (20.0-45.0) L Monocytes (%) (Auto) 7.6 % (1.0-10.0) Eosinophils (%) (Auto) 5.8 % (0.0-3.0) H Basophils (%) (Auto) 2.5 % (0.0-2.0) H Sodium Level 138 mEQ/L (135-145) Potassium Level 4.2 mEQ/L (3.4-4.9) Chloride Level 97 mEQ/L (98-107) L Carbon Dioxide Level 28 mEQ/L (20-30) Anion Gap 13 (5-15) Blood Urea Nitrogen 22 mg/dL (7-23) Creatinine 1.2 mg/dL (0.7-1.2) Estimat Glomerular Filtration Rate > 60 mL/min (>60) Glucose Level 246 mg/dL (74-106) H Hemoglobin A1c 10.0 % (< 6.0) H Calcium Level 8.7 mg/dL (8.6-10.2) # Magnesium Level 1.6 mg/dL (1.7-2.5) L Troponin I < 0.30 ng/mL (<=0.30) Pro-B-Type Natriuretic Peptide 6633 pg/mL (0-125) H Triglycerides Level 81 mg/dL (< 150) Cholesterol Level 78 mg/dL (< 200) LDL Cholesterol 37 mg/dL (60-99) L HDL Cholesterol 25 mg/dL (> 60) Cholesterol/HDL Ratio 3.1 (3.3-4.4) L Thyroid Stimulating Hormone (TSH) 3.600 uIU/mL (0.300-4.500) Microbiology Date/Time Source Procedure Growth Status 11/03/16 08:05 Sacral Wound Gram Stain - Final Resulted 11/03/16 08:05 Sacral Wound Wound Culture - Preliminary Resulted Intake and Output 11/03/16 11/04/16 19:00 07:00 Intake Total 40 ml 120 ml Output Total 200 ml 2052 ml Balance -160 ml -1932 ml IV Total 40 ml 120 ml Output Urine Total 200 ml 2052 ml # Voids 1 Assessment/Plan Problem List: (1) COPD (chronic obstructive pulmonary disease) (2) Sleep apnea, obstructive (3) SOB (shortness of breath) (4) Atrial fibrillation (5) Foot abscess, left (6) Diabetes mellitus type II, uncontrolled (7) HTN (hypertension) (8) Hypercholesteremia (9) Peripheral vascular disease (10) Morbid obesity with BMI of 60.0-69.9, adult (11) Chest pain (12) Acute exacerbation of CHF (congestive heart failure) AMITA NEAL Nov 04, 2016 14:49
--- NOTE | 2016-11-04 14:53 | Pulmonology Progress Note ---
Assessment/Plan Assessment/Plan ASSESSMENT chest pain due to CHF exacerbation r/o ACS -negative acute systolic and diastolic heart failure exacerbation severe dilated cardiomyopathy Permanent AF moderate pulmonary HTN PVD morbid obesity MARBELLA DM Hx of HTN PVD left lower leg wound, possible abscess PLAN OF CARE tele serial troponin x 3 negative ECHO with EF10-15% and RVSP of 45 c/w moderate pulmonary HTN as well as evidence of mild to moderate MR and TR cardio eval noted and appreciated Lasix gtt continue monitor renal parameters, lytes, I/O medical management of CHF with BB, BORIS, and Aldactone trend pro BNP, CXR will need to repeat ECHO in 3 months and if no improvement with medical management, will likely need AICD O2 HHN prn, keep sat above 92% ASA A/coagulation with Eliquis ( as in SNF), rate control , continue Amiodarone and Digoxin lipid panel-stable, TSH-stable, Mg-1.6, replace and check level in am BS management with SS of insulin, HgA1c -10, not at goal , monitor and optimize as needed pain management podiatry eval for possible foot abscess wound nurse eval bowel regimen case discussed and evaluated by supervising physician Subjective Allergies: Coded Allergies: HYDROMORPHONE (Unverified Allergy, Unknown, 11/03/16) PIOGLITAZONE (Verified Allergy, Unknown, 11/03/16) Uncoded Allergies: HYDROMORPHINE (Allergy, Unknown, 11/03/16) Subjective on Lasix drip no chest pain no SOB, reports some improvement Objective Last 24 Hour Vital Signs Date Time Temp Pulse Resp B/P Pulse Ox O2 Delivery O2 Flow Rate FiO2 11/04/16 12:00 93 11/04/16 12:00 97.3 90 20 122/71 100 Room Air 11/04/16 09:17 94 124/65 11/04/16 09:17 124/65 11/04/16 09:16 94 11/04/16 08:00 97.3 94 19 124/65 95 Room Air 11/04/16 08:00 96 11/04/16 07:28 73 18 Room Air 11/04/16 04:00 94 11/04/16 04:00 97.7 73 18 116/65 99 Room Air 11/04/16 00:00 97.7 74 20 120/75 96 Room Air 11/04/16 00:00 104 11/03/16 21:22 78 117/71 11/03/16 20:43 97.5 78 20 117/71 95 Room Air 11/03/16 20:00 94 11/03/16 16:00 95.9 80 20 136/81 95 Room Air 11/03/16 16:00 93 Intake and Output 11/03/16 11/04/16 19:00 07:00 Intake Total 40 ml 120 ml Output Total 200 ml 2052 ml Balance -160 ml -1932 ml IV Total 40 ml 120 ml Output Urine Total 200 ml 2052 ml # Voids 1 Objective General Appearance: WD/WN, alert, other - A/A/O x 4 morbidly obese Lines, tubes and drains: peripheral HEENT: normocephalic, atraumatic, anicteric, mucous membranes moist, PERRL, supple Neck: non-tender Respiratory/Chest: lungs clear - diminished BS Cardiovascular/Chest: irregular irregular, A fib on tele, rate controlled Abdomen: normal bowel sounds, non tender, soft - obese Skin Exam: warm/dry, other - left lower leg wound Neurologic: abnormal gait, alert, oriented x 3, responsive, normal mood/affect Musculoskeletal: normal muscle bulk Microbiology Date/Time Source Procedure Growth Status 11/03/16 08:05 Sacral Wound Gram Stain - Final Resulted 11/03/16 08:05 Sacral Wound Wound Culture - Preliminary Resulted Laboratory Tests 11/04/16 06:30: Arterial Blood pH 7.440, Arterial Blood Partial Pressure CO2 44.3, Arterial Blood Partial Pressure O2 66.3L, Arterial Blood HCO3 29.6H, Arterial Blood Oxygen Saturation 92.2, Arterial Blood Base Excess 4.9, Artie Test Positive 11/04/16 09:45: White Blood Count 8.1, Red Blood Count 5.43, Hemoglobin 12.0L, Hematocrit 42.9, Mean Corpuscular Volume 79L, Mean Corpuscular Hemoglobin 22.2L, Mean Corpuscular Hemoglobin Concent 28.1L, Red Cell Distribution Width 17.0H, Platelet Count 260, Mean Platelet Volume 7.1, Neutrophils (%) (Auto) 74.6, Lymphocytes (%) (Auto) 9.5L, Monocytes (%) (Auto) 7.6, Eosinophils (%) (Auto) 5.8H, Basophils (%) (Auto) 2.5H, Sodium Level 138, Potassium Level 4.2, Chloride Level 97L, Carbon Dioxide Level 28, Anion Gap 13, Blood Urea Nitrogen 22, Creatinine 1.2, Estimat Glomerular Filtration Rate > 60, Glucose Level 246H , Hemoglobin A1c 10.0H, Calcium Level 8.7#, Magnesium Level 1.6L, Troponin I < 0.30, Pro-B-Type Natriuretic Peptide 6633H, Triglycerides Level 81, Cholesterol Level 78, LDL Cholesterol 37L, HDL Cholesterol 25, Cholesterol/HDL Ratio 3.1L, Thyroid Stimulating Hormone (TSH) 3.600 Current Medications Medications (Trade) Dose Ordered Sig/Lexii Route PRN Reason Start Time Stop Time Status Last Admin Dose Admin Acetaminophen (Tylenol) 650 mg Q4H PRN ORAL Mild Pain (Pain Scale 1-3) 11/03/16 12:00 12/03/16 11:59 Al Hydroxide/Mg Hydroxide 30 ml 30 ml Q6H PRN ORAL dyspepsia 11/03/16 12:00 12/03/16 11:59 Albuterol/ Ipratropium (DuoNeb 0.5-3(2.5)mg/3ml) 3 ml Q6H PRN HHN Shortness of Breath 11/03/16 12:00 11/08/16 11:59 Amiodarone HCl (Cordarone) 200 mg DAILY ORAL 11/04/16 09:00 12/04/16 08:59 11/04/16 09:16 Apixaban (Eliquis) 5 mg BID ORAL 11/03/16 18:00 12/03/16 17:59 11/04/16 09:20 Aspirin (ASA) 81 mg DAILY ORAL 11/04/16 09:00 12/04/16 08:59 11/04/16 09:16 Carvedilol (Coreg) 3.125 mg EVERY 12 HOURS ORAL 11/03/16 21:00 12/03/16 20:59 11/04/16 09:17 Dextrose (Dextrose 50%) STAT PRN IV Hypoglycemia 11/03/16 12:15 12/03/16 12:14 Digoxin (Lanoxin) 0.125 mg DAILY ORAL 11/04/16 09:00 12/04/16 08:59 11/04/16 09:16 Furosemide/ Dextrose (Lasix/D5W) 100 ml @ 10 mls/hr Q10H IV 11/03/16 14:00 12/03/16 13:59 11/04/16 10:43 Insulin Aspart (NovoLOG) BEFORE MEALS AND HS SUBQ 11/03/16 16:30 12/03/16 16:29 11/04/16 11:46 Lisinopril (Zestril) 10 mg DAILY ORAL 11/04/16 09:00 12/04/16 08:59 11/04/16 09:17 Nitroglycerin (Ntg) 0.4 mg Q5M PRN SL Prn Chest Pain 11/03/16 12:00 12/03/16 11:59 Ondansetron HCl (Zofran) 4 mg Q6H PRN IVP Nausea & Vomiting 11/03/16 12:00 12/03/16 11:59 Polyethylene Glycol (Miralax) 17 gm DAILYPRN PRN ORAL Constipation 11/03/16 12:00 12/03/16 11:59 Spironolactone (Aldactone) 25 mg DAILY ORAL 11/04/16 09:00 12/04/16 08:59 11/04/16 09:16 Temazepam (Restoril) 15 mg DAILYPRN PRN ORAL Insomnia 11/03/16 12:00 11/10/16 11:59 Tramadol HCl (Ultram) 50 mg Q6H PRN ORAL Moderate Pain (Pain Scale 4-6) 11/03/16 12:00 11/10/16 11:59 Hasmukh CarrenoMilana sethi NP Nov 04, 2016 14:53
--- NOTE | 2016-11-04 14:54 | Internal Med Progress Note ---
Subjective Date of Service: Nov 04, 2016 Physician Name Amita Neal Attending Physician Kip Torres MD Current Medications Medications (Trade) Dose Ordered Sig/Lexii Route PRN Reason Start Time Stop Time Status Last Admin Dose Admin Acetaminophen (Tylenol) 650 mg Q4H PRN ORAL Mild Pain (Pain Scale 1-3) 11/03/16 12:00 12/03/16 11:59 Al Hydroxide/Mg Hydroxide 30 ml 30 ml Q6H PRN ORAL dyspepsia 11/03/16 12:00 12/03/16 11:59 Albuterol/ Ipratropium (DuoNeb 0.5-3(2.5)mg/3ml) 3 ml Q6H PRN HHN Shortness of Breath 11/03/16 12:00 11/08/16 11:59 Amiodarone HCl (Cordarone) 200 mg DAILY ORAL 11/04/16 09:00 12/04/16 08:59 11/04/16 09:16 Apixaban (Eliquis) 5 mg BID ORAL 11/03/16 18:00 12/03/16 17:59 11/04/16 09:20 Aspirin (ASA) 81 mg DAILY ORAL 11/04/16 09:00 12/04/16 08:59 11/04/16 09:16 Carvedilol (Coreg) 3.125 mg EVERY 12 HOURS ORAL 11/03/16 21:00 12/03/16 20:59 11/04/16 09:17 Dextrose (Dextrose 50%) STAT PRN IV Hypoglycemia 11/03/16 12:15 12/03/16 12:14 Digoxin (Lanoxin) 0.125 mg DAILY ORAL 11/04/16 09:00 12/04/16 08:59 11/04/16 09:16 Furosemide/ Dextrose (Lasix/D5W) 100 ml @ 10 mls/hr Q10H IV 11/03/16 14:00 12/03/16 13:59 11/04/16 10:43 Insulin Aspart (NovoLOG) BEFORE MEALS AND HS SUBQ 11/03/16 16:30 12/03/16 16:29 11/04/16 11:46 Lisinopril (Zestril) 10 mg DAILY ORAL 11/04/16 09:00 12/04/16 08:59 11/04/16 09:17 Nitroglycerin (Ntg) 0.4 mg Q5M PRN SL Prn Chest Pain 11/03/16 12:00 12/03/16 11:59 Ondansetron HCl (Zofran) 4 mg Q6H PRN IVP Nausea & Vomiting 11/03/16 12:00 12/03/16 11:59 Polyethylene Glycol (Miralax) 17 gm DAILYPRN PRN ORAL Constipation 11/03/16 12:00 12/03/16 11:59 Spironolactone (Aldactone) 25 mg DAILY ORAL 11/04/16 09:00 12/04/16 08:59 11/04/16 09:16 Temazepam (Restoril) 15 mg DAILYPRN PRN ORAL Insomnia 11/03/16 12:00 11/10/16 11:59 Tramadol HCl (Ultram) 50 mg Q6H PRN ORAL Moderate Pain (Pain Scale 4-6) 11/03/16 12:00 11/10/16 11:59 Allergies: Coded Allergies: HYDROMORPHONE (Unverified Allergy, Unknown, 11/03/16) PIOGLITAZONE (Verified Allergy, Unknown, 11/03/16) Uncoded Allergies: HYDROMORPHINE (Allergy, Unknown, 11/03/16) Subjective 51 YO M admitted with shortness of breath and chest pain. Cover for Int Med-Dr Torres. Await podiatry consult. Objective Last Vital Signs Date Time Temp Pulse Resp B/P Pulse Ox O2 Delivery O2 Flow Rate FiO2 11/04/16 12:00 93 11/04/16 12:00 97.3 20 122/71 100 Room Air Laboratory Tests Test 11/04/16 06:30 11/04/16 09:45 Arterial Blood pH 7.440 (7.350-7.450) Arterial Blood Partial Pressure CO2 44.3 mmHg (35.0-45.0) Arterial Blood Partial Pressure O2 66.3 mmHg (75.0-100.0) L Arterial Blood HCO3 29.6 mmol/L (22.0-26.0) H Arterial Blood Oxygen Saturation 92.2 % (92.0-98.0) Arterial Blood Base Excess 4.9 Artie Test Positive White Blood Count 8.1 K/UL (4.8-10.8) Red Blood Count 5.43 M/UL (4.70-6.10) Hemoglobin 12.0 G/DL (14.2-18.0) L Hematocrit 42.9 % (42.0-52.0) Mean Corpuscular Volume 79 FL (80-99) L Mean Corpuscular Hemoglobin 22.2 PG (27.0-31.0) L Mean Corpuscular Hemoglobin Concent 28.1 G/DL (32.0-36.0) L Red Cell Distribution Width 17.0 % (11.6-14.8) H Platelet Count 260 K/UL (150-450) Mean Platelet Volume 7.1 FL (6.5-10.1) Neutrophils (%) (Auto) 74.6 % (45.0-75.0) Lymphocytes (%) (Auto) 9.5 % (20.0-45.0) L Monocytes (%) (Auto) 7.6 % (1.0-10.0) Eosinophils (%) (Auto) 5.8 % (0.0-3.0) H Basophils (%) (Auto) 2.5 % (0.0-2.0) H Sodium Level 138 mEQ/L (135-145) Potassium Level 4.2 mEQ/L (3.4-4.9) Chloride Level 97 mEQ/L (98-107) L Carbon Dioxide Level 28 mEQ/L (20-30) Anion Gap 13 (5-15) Blood Urea Nitrogen 22 mg/dL (7-23) Creatinine 1.2 mg/dL (0.7-1.2) Estimat Glomerular Filtration Rate > 60 mL/min (>60) Glucose Level 246 mg/dL (74-106) H Hemoglobin A1c 10.0 % (< 6.0) H Calcium Level 8.7 mg/dL (8.6-10.2) # Magnesium Level 1.6 mg/dL (1.7-2.5) L Troponin I < 0.30 ng/mL (<=0.30) Pro-B-Type Natriuretic Peptide 6633 pg/mL (0-125) H Triglycerides Level 81 mg/dL (< 150) Cholesterol Level 78 mg/dL (< 200) LDL Cholesterol 37 mg/dL (60-99) L HDL Cholesterol 25 mg/dL (> 60) Cholesterol/HDL Ratio 3.1 (3.3-4.4) L Thyroid Stimulating Hormone (TSH) 3.600 uIU/mL (0.300-4.500) Microbiology Date/Time Source Procedure Growth Status 11/03/16 08:05 Sacral Wound Gram Stain - Final Resulted 11/03/16 08:05 Sacral Wound Wound Culture - Preliminary Resulted Intake and Output 11/03/16 11/04/16 19:00 07:00 Intake Total 40 ml 120 ml Output Total 200 ml 2052 ml Balance -160 ml -1932 ml IV Total 40 ml 120 ml Output Urine Total 200 ml 2052 ml # Voids 1 Assessment/Plan Problem List: (1) COPD (chronic obstructive pulmonary disease) Assessment & Plan: See pulmonary note. (2) Sleep apnea, obstructive (3) SOB (shortness of breath) (4) Atrial fibrillation Assessment & Plan: See cardiology note. Cont amiodarone and digoxin. (5) Foot abscess, left Assessment & Plan: Await podiatry consult. (6) Diabetes mellitus type II, uncontrolled (7) HTN (hypertension) Assessment & Plan: Continue lisinopril. (8) Hypercholesteremia (9) Peripheral vascular disease (10) Morbid obesity with BMI of 60.0-69.9, adult (11) Chest pain Assessment & Plan: See cardiology note. (12) Acute exacerbation of CHF (congestive heart failure) Assessment & Plan: LVEF=10-15%. See cardiology note. (13) Cardiomyopathy Status: not improved AMITA NEAL Nov 04, 2016 14:54
--- NOTE | 2016-11-04 15:04 | Cardiology Report ---
APPROVED REPORT EXAM: Two-dimensional and M-mode echocardiogram with Doppler and color Doppler. INDICATION Chest Pain M-Mode DIMENSIONS IVSd1.5 (0.7-1.1cm)Left Atrium (MM)4.6 (1.6-4.0cm) LVDd6.4 (3.5-5.6cm)Aortic Root2.9 (2.0-3.7cm) PWd1.1 (0.7-1.1cm)Aortic Cusp Exc.2.0 (1.5-2.0cm) LVDs5.6 (2.5-4.0cm) PWs1.3 cm Severe left ventricular enlargement by 2D. Severe global left ventricular hypokinesis. Left ventricular ejection fraction estimated to be 10-15 %. Mild left ventricular hypertrophy. Trivial pericardial effusion. Large pleural effusion. Mild bi-atrial enlargement. Mild right ventricular enlargement. Mild focal aortic valve sclerosis with adequate cusp excursion. Mildly thickened mitral valve leaflets with normal excursion. Mild mitral annulus and aortic root calcification. Normal pulmonic valve structure. Normal tricuspid valve structure. IVC dilated at 2.5 cm with physiologic collapse. A color flow and spectral Doppler study was performed and revealed: Trace aortic regurgitation. Moderate eccentric mitral regurgitation. Left ventricular diastolic function could not be determined due to A-Fib. Moderate to severe tricuspid regurgitation. Tricuspid systolic velocities suggests peak right ventricular systolic pressure of 46 mmHg, consistent with moderate pulmonary hypertension. Mild pulmonic regurgitation present.
--- NOTE | 2016-11-04 16:20 | Cardiology Report ---
APPROVED REPORT EKG Measurement Heart [id number] Sinus tachycardia with 1st degree AV block Nonspecific T wave abnormality Abnormal ECG
[2016-11-05 04:00] VITALS: BP 130/81
[2016-11-05] MEDS: NovoLOG Insulin Flexpen SUBQ SCH ×4 (06:44→20:38)
[2016-11-05 07:45] LABS: BASOPHILS % (AUTO) 1.4 % (0.0-2.0); EOSINOPHILS % (AUTO) 7.1 % (0.0-3.0); MEAN CORPUSCULAR HEMOGLOBIN 23.7 PG (27.0-31.0); MEAN CORPUSCULAR HGB CONC 30.2 G/DL (32.0-36.0); MEAN CORPUSCULAR VOLUME 79 FL (80-99); MEAN PLATELET VOLUME 7.8 FL (6.5-10.1); MONOCYTES % (AUTO) 7.3 % (1.0-10.0); NEUTROPHILS % (AUTO) 71.3 % (45.0-75.0); PLATELET COUNT 245 K/UL (150-450); RED BLOOD COUNT 5.03 M/UL (4.70-6.10); WHITE BLOOD COUNT 8.8 K/UL (4.8-10.8)
[2016-11-05 08:00] VITALS: BP 131/76
[2016-11-05] MEDS: Aspirin Baby 81mg ORAL SCH (09:02)
[2016-11-05] MEDS: Amiodarone 200mg tab ORAL SCH (09:02)
[2016-11-05] MEDS: Spironolactone 25mg tab ORAL SCH (09:02)
[2016-11-05] MEDS: Eliquis 2.5mg tablet ORAL SCH ×2 (09:03→17:26)
[2016-11-05] MEDS: Lisinopril 10mg tab ORAL SCH (09:08)
[2016-11-05] MEDS: Digoxin 0.125mg tab ORAL SCH (09:08)
[2016-11-05 09:48] LABS: ANION GAP 15 (5-15); CARBON DIOXIDE 28 mEQ/L (20-30); CHLORIDE 97 mEQ/L (98-107); CREATININE 1.2 mg/dL (0.7-1.2); GLOMERULAR FILTRATION RATE > 60 mL/min (>60); HEMOLYSIS 3; POTASSIUM 3.8 mEQ/L (3.4-4.9); SODIUM 140 mEQ/L (135-145)
--- NOTE | 2016-11-05 10:37 | Consultation ---
Consult Note Consult Note PODIATRY CONSULT CONSULTING PHYSICIAN: Jaylon Henderson DPM COVERING FOR: Edson Xie DPM REASON FOR CONSULT: Left foot blister HISTORY OF PRESENT ILLNESS: Patient is a pleasant 51 year old male with a history of left foot blister. Patient believes that the blister was caused by contaminated water at his house. He reports that the blister was lanced at another hospital and daily dressing changes are being performed. No nausea, vomiting fevers, or chills ALLERGIES: Hydromorphine, hydromorphone, pioglitazone PAST MEDICAL HISTORY: HTN, CHF, AFIB, T2DM, hyperlipidemia, PVD, COPD, CAD MEDICATIONS: Reviewed. Please refer to chart for details FAMILY AND SURGICAL HISTORY: No pertinent findings SOCIAL HISTORY: No current tobacco, alcohol, or illicit drug use Last 24 Hour Vital Signs Date Time Temp Pulse Resp B/P Pulse Ox O2 Delivery O2 Flow Rate FiO2 11/05/16 09:08 80 130/80 11/05/16 09:08 130/80 11/05/16 09:08 80 11/05/16 08:39 75 20 Room Air 11/05/16 08:00 91 11/05/16 08:00 97.3 80 20 131/76 97 Room Air 11/05/16 04:00 97.0 97 18 130/81 97 Room Air 11/05/16 04:00 92 11/05/16 00:00 103 11/04/16 23:39 97.9 92 18 132/90 97 Room Air 11/04/16 21:03 100 113/60 11/04/16 20:35 88 20 Room Air 11/04/16 20:00 97.8 97 20 138/77 91 Room Air 11/04/16 20:00 97 11/04/16 16:00 89 11/04/16 16:00 96.3 88 21 129/78 95 Room Air 11/04/16 12:00 93 11/04/16 12:00 97.3 90 20 122/71 100 Room Air Laboratory Tests Test 11/05/16 06:20 White Blood Count 8.8 K/UL (4.8-10.8) Red Blood Count 5.03 M/UL (4.70-6.10) Hemoglobin 11.9 G/DL (14.2-18.0) L Hematocrit 39.5 % (42.0-52.0) L Mean Corpuscular Volume 79 FL (80-99) L Mean Corpuscular Hemoglobin 23.7 PG (27.0-31.0) L Mean Corpuscular Hemoglobin Concent 30.2 G/DL (32.0-36.0) L Red Cell Distribution Width 17.0 % (11.6-14.8) H Platelet Count 245 K/UL (150-450) Mean Platelet Volume 7.8 FL (6.5-10.1) Neutrophils (%) (Auto) 71.3 % (45.0-75.0) Lymphocytes (%) (Auto) 13.0 % (20.0-45.0) L Monocytes (%) (Auto) 7.3 % (1.0-10.0) Eosinophils (%) (Auto) 7.1 % (0.0-3.0) H Basophils (%) (Auto) 1.4 % (0.0-2.0) Sodium Level 140 mEQ/L (135-145) Potassium Level 3.8 mEQ/L (3.4-4.9) Chloride Level 97 mEQ/L (98-107) L Carbon Dioxide Level 28 mEQ/L (20-30) Anion Gap 15 (5-15) Blood Urea Nitrogen 23 mg/dL (7-23) Creatinine 1.2 mg/dL (0.7-1.2) Estimat Glomerular Filtration Rate > 60 mL/min (>60) Glucose Level 183 mg/dL (74-106) H Calcium Level 9.0 mg/dL (8.6-10.2) Magnesium Level 1.3 mg/dL (1.7-2.5) L Pro-B-Type Natriuretic Peptide 5680 pg/mL (0-125) H Microbiology Date/Time Source Procedure Growth Status 11/03/16 10:33 Nasal Nares MRSA Culture - Final Staphylococcus Aureus - Mrsa Complete 11/03/16 10:33 Rectum VRE Culture - Final Enterococcus Faecalis - Vre Complete PHYSICAL EXAM: DERM: Left foot dry resolving blister. No surrounding erythema or edema. Multiple small areas of dry stable eschars on bilateral legs NEURO: Sensation in tact to light touch VASC: Pedal pulses palpable MSK: Bilateral foot and ankle muscle strength appropriate for age . Assessment/Plan ASSESSMENT: - Left foot resolving blister and multiple small areas of bilateral leg stable eschars. The wounds do not appear to be clinically infected PLAN: - Continue daily wound care. Once there is no drainage okay to keep wounds open to air - Nursing staff to inform podiatry service if any acute changes or worsening occurs - Offload heels Jaylon Henderson DPM Nov 05, 2016 10:37
[2016-11-05 12:00] VITALS: BP 114/71
--- NOTE | 2016-11-05 12:14 | Diagnostic Imaging Report ---
Indication: Dyspnea Comparison: 11/03/16 A single view chest radiograph was obtained. Findings: Some vascular prominence demonstrated once again. There is evidence of a left pleural effusion. Cardiomegaly is relatively stable. Impression: Mild interstitial edema may be present. No definite change
--- NOTE | 2016-11-05 12:36 | Internal Med Progress Note ---
Subjective Date of Service: Nov 05, 2016 Physician Name Amita Neal Attending Physician Kip Torres MD Current Medications Medications (Trade) Dose Ordered Sig/Lexii Route PRN Reason Start Time Stop Time Status Last Admin Dose Admin Acetaminophen (Tylenol) 650 mg Q4H PRN ORAL Mild Pain (Pain Scale 1-3) 11/03/16 12:00 12/03/16 11:59 Al Hydroxide/Mg Hydroxide 30 ml 30 ml Q6H PRN ORAL dyspepsia 11/03/16 12:00 12/03/16 11:59 Albuterol/ Ipratropium (DuoNeb 0.5-3(2.5)mg/3ml) 3 ml Q6H PRN HHN Shortness of Breath 11/03/16 12:00 11/08/16 11:59 Amiodarone HCl (Cordarone) 200 mg DAILY ORAL 11/04/16 09:00 12/04/16 08:59 11/05/16 09:02 Apixaban (Eliquis) 5 mg BID ORAL 11/03/16 18:00 12/03/16 17:59 11/05/16 09:03 Aspirin (ASA) 81 mg DAILY ORAL 11/04/16 09:00 12/04/16 08:59 11/05/16 09:02 Carvedilol (Coreg) 3.125 mg EVERY 12 HOURS ORAL 11/03/16 21:00 12/03/16 20:59 11/05/16 09:08 Dextrose (Dextrose 50%) STAT PRN IV Hypoglycemia 11/03/16 12:15 12/03/16 12:14 Digoxin (Lanoxin) 0.125 mg DAILY ORAL 11/04/16 09:00 12/04/16 08:59 11/05/16 09:08 Furosemide/ Dextrose (Lasix/D5W) 100 ml @ 10 mls/hr Q10H IV 11/03/16 14:00 12/03/16 13:59 11/05/16 06:43 Insulin Aspart (NovoLOG) BEFORE MEALS AND HS SUBQ 11/03/16 16:30 12/03/16 16:29 11/05/16 11:16 Lisinopril (Zestril) 10 mg DAILY ORAL 11/04/16 09:00 12/04/16 08:59 11/05/16 09:08 Nitroglycerin (Ntg) 0.4 mg Q5M PRN SL Prn Chest Pain 11/03/16 12:00 12/03/16 11:59 Ondansetron HCl (Zofran) 4 mg Q6H PRN IVP Nausea & Vomiting 11/03/16 12:00 12/03/16 11:59 Polyethylene Glycol (Miralax) 17 gm DAILYPRN PRN ORAL Constipation 11/03/16 12:00 12/03/16 11:59 Spironolactone (Aldactone) 25 mg DAILY ORAL 11/04/16 09:00 12/04/16 08:59 11/05/16 09:02 Temazepam (Restoril) 15 mg DAILYPRN PRN ORAL Insomnia 11/03/16 12:00 11/10/16 11:59 Tramadol HCl (Ultram) 50 mg Q6H PRN ORAL Moderate Pain (Pain Scale 4-6) 11/03/16 12:00 11/10/16 11:59 Allergies: Coded Allergies: HYDROMORPHONE (Unverified Allergy, Unknown, 11/03/16) PIOGLITAZONE (Verified Allergy, Unknown, 11/03/16) Uncoded Allergies: HYDROMORPHINE (Allergy, Unknown, 11/03/16) ROS Limited/Unobtainable: No Constitutional: Reports: no symptoms HEENT: Reports: no symptoms Cardiovascular: Reports: chest pain Respiratory: Reports: no symptoms Gastrointestinal/Abdominal: Reports: no symptoms Genitourinary: Reports: no symptoms Neurologic/Psychiatric: Reports: no symptoms Subjective 51 YO M admitted with shortness of breath and chest pain. Cover for Int Lang Torres Objective Last Vital Signs Date Time Temp Pulse Resp B/P Pulse Ox O2 Delivery O2 Flow Rate FiO2 11/05/16 09:08 80 130/80 11/05/16 08:39 20 Room Air 11/05/16 08:00 97.3 97 Laboratory Tests Test 11/05/16 06:20 White Blood Count 8.8 K/UL (4.8-10.8) Red Blood Count 5.03 M/UL (4.70-6.10) Hemoglobin 11.9 G/DL (14.2-18.0) L Hematocrit 39.5 % (42.0-52.0) L Mean Corpuscular Volume 79 FL (80-99) L Mean Corpuscular Hemoglobin 23.7 PG (27.0-31.0) L Mean Corpuscular Hemoglobin Concent 30.2 G/DL (32.0-36.0) L Red Cell Distribution Width 17.0 % (11.6-14.8) H Platelet Count 245 K/UL (150-450) Mean Platelet Volume 7.8 FL (6.5-10.1) Neutrophils (%) (Auto) 71.3 % (45.0-75.0) Lymphocytes (%) (Auto) 13.0 % (20.0-45.0) L Monocytes (%) (Auto) 7.3 % (1.0-10.0) Eosinophils (%) (Auto) 7.1 % (0.0-3.0) H Basophils (%) (Auto) 1.4 % (0.0-2.0) Sodium Level 140 mEQ/L (135-145) Potassium Level 3.8 mEQ/L (3.4-4.9) Chloride Level 97 mEQ/L (98-107) L Carbon Dioxide Level 28 mEQ/L (20-30) Anion Gap 15 (5-15) Blood Urea Nitrogen 23 mg/dL (7-23) Creatinine 1.2 mg/dL (0.7-1.2) Estimat Glomerular Filtration Rate > 60 mL/min (>60) Glucose Level 183 mg/dL (74-106) H Calcium Level 9.0 mg/dL (8.6-10.2) Magnesium Level 1.3 mg/dL (1.7-2.5) L Pro-B-Type Natriuretic Peptide 5680 pg/mL (0-125) H Microbiology Date/Time Source Procedure Growth Status 11/03/16 10:33 Nasal Nares MRSA Culture - Final Staphylococcus Aureus - Mrsa Complete 11/03/16 10:33 Rectum VRE Culture - Final Enterococcus Faecalis - Vre Complete 11/03/16 08:05 Sacral Wound Gram Stain - Final Resulted 11/03/16 08:05 Wound Culture - Preliminary Staphylococcus Aureus - Mrsa Escherichia Coli Resulted Intake and Output 11/04/16 11/05/16 19:00 07:00 Intake Total 620 ml 966.6 ml Output Total 1800 ml 2050 ml Balance -1180 ml -1083.4 ml Intake Oral 500 ml 860 ml IV Total 120 ml 106.6 ml Output Urine Total 1800 ml 2050 ml Objective General Appearance: no apparent distress, alert, obese EENT: PERRL/EOMI, normal ENT inspection Neck: non-tender, normal alignment, supple Cardiovascular: normal peripheral pulses, normal rate, regular rhythm, no gallop/murmur, no JVD Respiratory/Chest: chest wall non-tender, crackles/rales, rhonchi - bilaterally , expiratory wheezing Abdomen: normal bowel sounds, non tender, soft, no organomegaly, no mass Extremities: normal range of motion, non-tender Edema: trace edema Neurologic: machine sprayer II-XII grossly normal, no motor/sensory deficits Skin: normal pigmentation, warm/dry Assessment/Plan Problem List: (1) COPD (chronic obstructive pulmonary disease) Assessment & Plan: See pulmonary note. (2) Sleep apnea, obstructive (3) SOB (shortness of breath) (4) Atrial fibrillation Assessment & Plan: See cardiology note. Cont amiodarone and digoxin. (5) Foot abscess, left Assessment & Plan: See podiatry consult. (6) Diabetes mellitus type II, uncontrolled (7) HTN (hypertension) Assessment & Plan: Continue lisinopril. (8) Hypercholesteremia (9) Peripheral vascular disease (10) Morbid obesity with BMI of 60.0-69.9, adult (11) Chest pain Assessment & Plan: See cardiology note. (12) Acute exacerbation of CHF (congestive heart failure) Assessment & Plan: LVEF=10-15%. See cardiology note. (13) Cardiomyopathy Status: not improved AMITA NEAL Nov 05, 2016 12:36
[2016-11-05 12:59] LABS: TROPONIN I < 0.30 ng/mL (<=0.30)
--- NOTE | 2016-11-05 13:35 | Pulmonology Progress Note ---
Assessment/Plan Problems: (1) Atrial fibrillation (2) End-stage systolic heart failure (3) EF 10% (4) Foot abscess, left (5) Diabetes mellitus type II, uncontrolled (6) Morbid obesity with BMI of 60.0-69.9, adult Assessment/Plan continue diuretics check electrolytes heart rate controlled wound care on apixiban Subjective ROS Limited/Unobtainable: No Interval Events: less short of breath, on lasix drip Allergies: Coded Allergies: HYDROMORPHONE (Unverified Allergy, Unknown, 11/03/16) PIOGLITAZONE (Verified Allergy, Unknown, 11/03/16) Uncoded Allergies: HYDROMORPHINE (Allergy, Unknown, 11/03/16) Objective Last 24 Hour Vital Signs Date Time Temp Pulse Resp B/P Pulse Ox O2 Delivery O2 Flow Rate FiO2 11/05/16 12:00 97.9 87 20 114/71 95 Room Air 11/05/16 12:00 90 11/05/16 09:08 80 130/80 11/05/16 09:08 130/80 11/05/16 09:08 80 11/05/16 08:39 75 20 Room Air 11/05/16 08:00 91 11/05/16 08:00 97.3 80 20 131/76 97 Room Air 11/05/16 04:00 97.0 97 18 130/81 97 Room Air 11/05/16 04:00 92 11/05/16 00:00 103 11/04/16 23:39 97.9 92 18 132/90 97 Room Air 11/04/16 21:03 100 113/60 11/04/16 20:35 88 20 Room Air 11/04/16 20:00 97.8 97 20 138/77 91 Room Air 11/04/16 20:00 97 11/04/16 16:00 89 11/04/16 16:00 96.3 88 21 129/78 95 Room Air Intake and Output 11/04/16 11/05/16 19:00 07:00 Intake Total 620 ml 966.6 ml Output Total 1800 ml 2050 ml Balance -1180 ml -1083.4 ml Intake Oral 500 ml 860 ml IV Total 120 ml 106.6 ml Output Urine Total 1800 ml 2050 ml General Appearance: WD/WN HEENT: normocephalic, atraumatic Respiratory/Chest: chest wall non-tender, lungs clear Cardiovascular: normal peripheral pulses, normal rate Abdomen: normal bowel sounds, soft, non tender Extremities: no cyanosis Skin: no rash Neurologic/Psychiatric: mechanic insulator II-XII grossly normal, no motor/sensory deficits Microbiology Date/Time Source Procedure Growth Status 11/03/16 10:33 Nasal Nares MRSA Culture - Final Staphylococcus Aureus - Mrsa Complete 11/03/16 10:33 Rectum VRE Culture - Final Enterococcus Faecalis - Vre Complete 11/03/16 08:05 Sacral Wound Gram Stain - Final Resulted 11/03/16 08:05 Wound Culture - Preliminary Staphylococcus Aureus - Mrsa Escherichia Coli Resulted Laboratory Tests 11/05/16 06:20: White Blood Count 8.8, Red Blood Count 5.03, Hemoglobin 11.9L, Hematocrit 39.5L , Mean Corpuscular Volume 79L, Mean Corpuscular Hemoglobin 23.7L, Mean Corpuscular Hemoglobin Concent 30.2L, Red Cell Distribution Width 17.0H, Platelet Count 245, Mean Platelet Volume 7.8, Neutrophils (%) (Auto) 71.3, Lymphocytes (%) (Auto) 13.0L, Monocytes (%) (Auto) 7.3, Eosinophils (%) (Auto) 7.1H, Basophils (%) (Auto) 1.4, Sodium Level 140, Potassium Level 3.8, Chloride Level 97L, Carbon Dioxide Level 28, Anion Gap 15, Blood Urea Nitrogen 23, Creatinine 1.2, Estimat Glomerular Filtration Rate > 60, Glucose Level 183H, Calcium Level 9.0, Magnesium Level 1.3L, Pro-B-Type Natriuretic Peptide 5680H 11/05/16 12:00: Troponin I < 0.30 Current Medications Medications (Trade) Dose Ordered Sig/Lexii Route PRN Reason Start Time Stop Time Status Last Admin Dose Admin Acetaminophen (Tylenol) 650 mg Q4H PRN ORAL Mild Pain (Pain Scale 1-3) 11/03/16 12:00 12/03/16 11:59 Al Hydroxide/Mg Hydroxide 30 ml 30 ml Q6H PRN ORAL dyspepsia 11/03/16 12:00 12/03/16 11:59 Albuterol/ Ipratropium (DuoNeb 0.5-3(2.5)mg/3ml) 3 ml Q6H PRN HHN Shortness of Breath 11/03/16 12:00 11/08/16 11:59 Amiodarone HCl (Cordarone) 200 mg DAILY ORAL 11/04/16 09:00 12/04/16 08:59 11/05/16 09:02 Apixaban (Eliquis) 5 mg BID ORAL 11/03/16 18:00 12/03/16 17:59 11/05/16 09:03 Aspirin (ASA) 81 mg DAILY ORAL 11/04/16 09:00 12/04/16 08:59 11/05/16 09:02 Carvedilol (Coreg) 3.125 mg EVERY 12 HOURS ORAL 11/03/16 21:00 12/03/16 20:59 11/05/16 09:08 Dextrose (Dextrose 50%) STAT PRN IV Hypoglycemia 11/03/16 12:15 12/03/16 12:14 Digoxin (Lanoxin) 0.125 mg DAILY ORAL 11/04/16 09:00 12/04/16 08:59 11/05/16 09:08 Furosemide/ Dextrose (Lasix/D5W) 100 ml @ 10 mls/hr Q10H IV 11/03/16 14:00 12/03/16 13:59 11/05/16 06:43 Insulin Aspart (NovoLOG) BEFORE MEALS AND HS SUBQ 11/03/16 16:30 12/03/16 16:29 11/05/16 11:16 Lisinopril (Zestril) 10 mg DAILY ORAL 11/04/16 09:00 12/04/16 08:59 11/05/16 09:08 Magnesium Chloride (Slow-Mag) 64 mg TWICE A DAY ORAL 11/05/16 12:45 12/05/16 12:44 UNV Nitroglycerin (Ntg) 0.4 mg Q5M PRN SL Prn Chest Pain 11/03/16 12:00 12/03/16 11:59 Ondansetron HCl (Zofran) 4 mg Q6H PRN IVP Nausea & Vomiting 11/03/16 12:00 12/03/16 11:59 Polyethylene Glycol (Miralax) 17 gm DAILYPRN PRN ORAL Constipation 11/03/16 12:00 12/03/16 11:59 Spironolactone (Aldactone) 25 mg DAILY ORAL 11/04/16 09:00 12/04/16 08:59 11/05/16 09:02 Temazepam (Restoril) 15 mg DAILYPRN PRN ORAL Insomnia 11/03/16 12:00 11/10/16 11:59 Tramadol HCl (Ultram) 50 mg Q6H PRN ORAL Moderate Pain (Pain Scale 4-6) 11/03/16 12:00 11/10/16 11:59 MELA REBOLLEDO Nov 05, 2016 13:34
[2016-11-05] MEDS: MAGNESIUM CHLORIDE 71.5 MG ORAL SCH ×2 (14:57→17:26)
--- NOTE | 2016-11-05 15:01 | Wound Care Consultation ---
Wound Assessment Wound Assessment #1: Wound Number: #1 Wound Present on Admission: Yes New Wound: No Status Change of Wound: No Wound Location Body Site Modif: mid Wound Location Body Site: sacral Wound Type: pressure ulcer Sunshine Test: Does not Sunshine Pressure Ulcer Stage: II Wound Thickness: Partial Thickness Wound Length: 1.0 Wound Width: 1.0 Wound Depth: 0.1 Percent of Wound [place]/Red: 100 Wound Drainage Description: Serosanguineous Wound Drainage Amount: Scant Wound Drainage Odor: None/Absent Tissue Surrounding Wound: Macerated Wound General Appearance: Reddened Wound Assessment #2: Wound Number: #2 Wound Present on Admission: Yes New Wound: No Status Change of Wound: No Wound Location Body Site Modif: left Wound Location Body Site: sacral Wound Type: pressure ulcer Sunshine Test: Does not Sunshine Pressure Ulcer Stage: III Wound Thickness: Full Thickness Wound Length: 8.0 Wound Width: 5.0 Wound Depth: 0.2 Percent of Wound [place]/Red: 100 Other Colors Identified: noted full thickness scar tissue to site. Wound Drainage Description: Serosanguineous Wound Drainage Amount: Moderate Wound Drainage Odor: None/Absent Tissue Surrounding Wound: Macerated Wound General Appearance: Reddened, Draining Wound Assessment #3: Wound Number: #3 Wound Present on Admission: Yes New Wound: No Status Change of Wound: No Wound Location Body Site Modif: right Wound Location Body Site: sacral Wound Type: pressure ulcer Sunshine Test: Does not Sunshine Pressure Ulcer Stage: III Wound Thickness: Full Thickness Wound Length: 5.0 Wound Width: 4.0 Wound Depth: 0.2 Percent of Wound [place]/Red: 100 Other Colors Identified: noted full thickness scar tissue to site. Wound Drainage Description: Serosanguineous Wound Drainage Amount: Moderate Wound Drainage Odor: None/Absent Tissue Surrounding Wound: Macerated Wound General Appearance: Reddened, Draining Wound Assessment #4: Wound Number: #4 Wound Present on Admission: Yes New Wound: No Status Change of Wound: No Wound Location Body Site Modif: left Wound Location Body Site: foot - dorsal foot. Wound Type: blister - ruptured blister Sunshine Test: Does not Sunshine Wound Thickness: Partial Thickness Wound Length: 6.5 Wound Width: 6.5 Wound Depth: 0.1 Percent of Wound [place]/Red: 90 Percent of Wound Black/Brown: 10 - brown scab noted. Other Colors Identified: noted scar tissue appearing to site. Wound Drainage Description: Serosanguineous Wound Drainage Amount: Scant Wound Drainage Odor: None/Absent Tissue Surrounding Wound: Intact Wound General Appearance: Reddened Wound Assessment #5: Wound Number: #5 Wound Present on Admission: Yes New Wound: No Status Change of Wound: No Wound Location Body Site Modif: left, medial Wound Location Body Site: leg Wound Type: scab - scattered Sunshine Test: Does not Sunshine Wound Thickness: Full Thickness Percent of Wound Black/Brown: 100 - scattered. Wound Drainage Amount: None Wound Drainage Odor: None/Absent Tissue Surrounding Wound: Intact Wound General Appearance: Blackened, Open to air, Clean/Dry Wound Assessment #6: Wound Number: #6 Wound Present on Admission: Yes New Wound: No Status Change of Wound: No Wound Location Body Site Modif: right, lower, anterior Wound Location Body Site: leg Wound Type: other - open wound- etiology unknown. Sunshine Test: Does not Sunshine Wound Thickness: Partial Thickness Wound Length: 2.0 Wound Width: 2.0 Wound Depth: 0.1 Percent of Wound [place]/Red: 100 Wound Drainage Description: Serosanguineous Wound Drainage Amount: Scant Wound Drainage Odor: None/Absent Tissue Surrounding Wound: Erythemic Wound General Appearance: Reddened Wound Assessment #7: Wound Number: #7 Wound Present on Admission: Yes New Wound: No Status Change of Wound: No Wound Location Body Site Modif: left, lower Wound Location Body Site: abdomen Wound Type: other - open wound -etiology unknown. Sunshine Test: Does not Sunshine Wound Thickness: Partial Thickness Wound Length: 1.0 Wound Width: 1.0 Wound Depth: 0.1 Percent of Wound [place]/Red: 100 Wound Drainage Description: Serosanguineous Wound Drainage Amount: Scant Wound Drainage Odor: None/Absent Tissue Surrounding Wound: Erythemic Wound General Appearance: Reddened Wound Assessment #8: Wound Number: #8 Wound Present on Admission: Yes New Wound: No Status Change of Wound: No Wound Location Body Site Modif: right, lower Wound Location Body Site: abdomen Wound Type: other - open wound -etiology unknown. Sunshine Test: Does not Sunshine Wound Thickness: Partial Thickness Wound Length: 5.0 - scacttered close in proximity. Wound Width: 2.0 - scattered close in proximity Wound Depth: 0.1 Percent of Wound [place]/Red: 100 - scattered Wound Drainage Description: Serosanguineous Wound Drainage Amount: Scant Wound Drainage Odor: None/Absent Tissue Surrounding Wound: Erythemic Wound General Appearance: Reddened Wound Assessment #9: Wound Number: #9 Wound Present on Admission: Yes New Wound: No Status Change of Wound: No Wound Location Body Site: abdominal fold - back folds Wound Type: other - mascerated skin. Sunshine Test: Does not Sunshine Percent of Wound [place]/Red: 100 Wound Drainage Amount: None Wound Drainage Odor: None/Absent Tissue Surrounding Wound: Macerated Wound General Appearance: Reddened, Open to air, Clean/Dry Wound Comment #1 Mid sacral pressure ulcer stage II. #2 Left Sacral pressure ulcer stage III. #3 Right Sacral pressure ulcer stage III. #4 Left dorsal foot ruptured blister. #5 Left lower leg dry scattered scabs. #6 Right lower leg open wound -etiology unknown. #7 Left lower abdomen open wound-etiology unknown. #8 Right lower abdomen open wound-etiology unknown. #9 Abdominal fold and back folds mascerated skin. . Recommendation. -Local wound care as ordered. -Apply low air loss p200 mattress for wound and skin management. -Turn and reposition. -Optimize nutrition. -Offload affected sites, offload heels, feet and lower extremities. -Apply heel protectors if needed. -Avoid shear and friction. -Keep clean and dry. -Assess and notify MD if any further change of condition to skin is noted. per patient regarding skin folds he does not want any powders applied or creams states " I'm allergic and break out",he prefers to have folds cleansed and pat dried leave open to air. WAQAS BLANCO Nov 05, 2016 15:01
--- NOTE | 2016-11-05 15:21 | Cardiac Electrophysiology PN ---
Assessment/Plan Assessment/Plan 1. Paroxysmal atrial fibrillation, was in SR on admission and now in atrial flutter. Continue amiodarone 200 mg daily, Dig and Coreg and Eliquis 5 mg b.i.d. 2. Chest pain. This is likely due to congestive heart failure in this patient with severe cardiomyopathy. His echocardiogram showed ejection fraction of only 10% to 15%. Change IV Lasix to 80 iv bid. Continue Coreg, lisinopril, and Aldactone. 3. Hypertension, Continue current CHF meds. 4. Morbid obesity, more than 420 pounds. 5. History of transient ischemic attack. 6. Diabetes. 7. History of sleep apnea. DW RN and Dr Irvin Subjective Subjective Feeling better on Lasix drip. No chest pain.Remained in atrial flutter with controlled rate in 80s Objective Last 24 Hour Vital Signs Date Time Temp Pulse Resp B/P Pulse Ox O2 Delivery O2 Flow Rate FiO2 11/05/16 12:00 97.9 87 20 114/71 95 Room Air 11/05/16 12:00 90 11/05/16 09:08 80 130/80 11/05/16 09:08 130/80 11/05/16 09:08 80 11/05/16 08:39 75 20 Room Air 11/05/16 08:00 91 11/05/16 08:00 97.3 80 20 131/76 97 Room Air 11/05/16 04:00 97.0 97 18 130/81 97 Room Air 11/05/16 04:00 92 11/05/16 00:00 103 11/04/16 23:39 97.9 92 18 132/90 97 Room Air 11/04/16 21:03 100 113/60 11/04/16 20:35 88 20 Room Air 11/04/16 20:00 97.8 97 20 138/77 91 Room Air 11/04/16 20:00 97 11/04/16 16:00 89 11/04/16 16:00 96.3 88 21 129/78 95 Room Air Intake and Output 11/04/16 11/05/16 19:00 07:00 Intake Total 620 ml 976.6 ml Output Total 1800 ml 2050 ml Balance -1180 ml -1073.4 ml Intake Oral 500 ml 860 ml IV Total 120 ml 116.6 ml Output Urine Total 1800 ml 2050 ml Laboratory Tests Test 11/05/16 06:20 11/05/16 12:00 White Blood Count 8.8 K/UL (4.8-10.8) Red Blood Count 5.03 M/UL (4.70-6.10) Hemoglobin 11.9 G/DL (14.2-18.0) L Hematocrit 39.5 % (42.0-52.0) L Mean Corpuscular Volume 79 FL (80-99) L Mean Corpuscular Hemoglobin 23.7 PG (27.0-31.0) L Mean Corpuscular Hemoglobin Concent 30.2 G/DL (32.0-36.0) L Red Cell Distribution Width 17.0 % (11.6-14.8) H Platelet Count 245 K/UL (150-450) Mean Platelet Volume 7.8 FL (6.5-10.1) Neutrophils (%) (Auto) 71.3 % (45.0-75.0) Lymphocytes (%) (Auto) 13.0 % (20.0-45.0) L Monocytes (%) (Auto) 7.3 % (1.0-10.0) Eosinophils (%) (Auto) 7.1 % (0.0-3.0) H Basophils (%) (Auto) 1.4 % (0.0-2.0) Sodium Level 140 mEQ/L (135-145) Potassium Level 3.8 mEQ/L (3.4-4.9) Chloride Level 97 mEQ/L (98-107) L Carbon Dioxide Level 28 mEQ/L (20-30) Anion Gap 15 (5-15) Blood Urea Nitrogen 23 mg/dL (7-23) Creatinine 1.2 mg/dL (0.7-1.2) Estimat Glomerular Filtration Rate > 60 mL/min (>60) Glucose Level 183 mg/dL (74-106) H Calcium Level 9.0 mg/dL (8.6-10.2) Magnesium Level 1.3 mg/dL (1.7-2.5) L Pro-B-Type Natriuretic Peptide 5680 pg/mL (0-125) H Troponin I < 0.30 ng/mL (<=0.30) Microbiology Date/Time Source Procedure Growth Status 11/03/16 10:33 Nasal Nares MRSA Culture - Final Staphylococcus Aureus - Mrsa Complete 11/03/16 10:33 Rectum VRE Culture - Final Enterococcus Faecalis - Vre Complete 11/03/16 08:05 Sacral Wound Gram Stain - Final Resulted 11/03/16 08:05 Wound Culture - Preliminary Staphylococcus Aureus - Mrsa Escherichia Coli Resulted Objective NECK: Mild JVD. LUNGS: Decreased breath sounds. CARDIOVASCULAR: Distant heart sounds and irregular. No gallop or rub. ABDOMEN: Morbidly obese. EXTREMITIES: A 2+ pitting edema. DAVID BRITO Nov 05, 2016 15:20
[2016-11-05 16:00] VITALS: BP 155/71
--- NOTE | 2016-11-05 16:03 | Infectious Diseases Prog Note ---
Infectious Disease Consult Infectious Disease Consult Infectious Disease Consult INFECTIOUS DISEASE CONSULTATION DATE OF CONSULTATION: CONSULTING PHYSICIAN: Reddy Rodriguez M.D., [facility], [facility] Covering for Dr. Cho REFERRING PHYSICIAN: Dr Annmarie Gongora REASON FOR CONSULTATION: L foot (dorsum) blister x10 days HISTORY OF PRESENT ILLNESS: 51 year old male, morbidly obese, suboptimally controlled DM2 (HGBA1c 10.0), dilated cardiomyopathy with severely depressed EF 10-15%, admitted for ACS r/o, has a with a history of left foot blister. blister had been persistent for 1-2 weeks. Patient believes that the blister was caused by contaminated tap/bath water at his house. recent admission to [facility] in [place] in September 2016 for elevated troponins. During that admission blister was lanced, reports he may have received antiobiotics for undetermined period of time, and was receiving topical care. He reports that the blister was lanced at another hospital and daily dressing changes are being performed. No nausea, vomiting, fevers, or chills, or erythema to skin. Recently at [facility]. He has had evaluation by wound care and podiatry at [place] during this admission. No prior h/o MRSA , but found to be MRSA colonized in nares now. PAST MEDICAL HISTORY: 1. Nonischemic cardiomyopathy, severe. 2. Congestive heart failure, systolic. 3. Atrial fibrillation. 4. Diabetes type 2. 5. Morbid obesity. 6. Chronic venous stasis changes in bilateral lower extremity. 7. Hypertension. 8. Hypercholesterolemia. 9. Peripheral vascular disease. 10. Chronic obstructive pulmonary disease. 11. Coronary artery disease, status post angiogram in 04/2016. 12. MARBELLA PAST SURGICAL HISTORY: 1. Coronary angiogram in 04/2016 as above. 2. Incision and drainage of left foot abscess, september2016 3. Open cholecystectomy in the . CURRENT Home MEDICATIONS: 1. Calcium carbonate 2 tablets p.o. q.8 hours. 2. Amiodarone 200 mg one tablet p.o. daily. 3. Aspirin 81 mg one tablet p.o. daily. 4. Eliquis 5 mg p.o. twice daily. 5. Regular insulin sliding scale. 6. Digoxin 0.125 mg p.o. daily. 7. Lantus 30 units subcutaneously nightly. 8. Lasix 40 mg one tablet p.o. daily. 9. Magnesium oxide 400 mg one tablet p.o. daily. 10. Restoril 15 mg one tablet p.o. nightly. 11. Tramadol 50 mg one tablet p.o. q.6 hours p.r.n. 12. Tylenol 650 mg p.o. q.4 hours p.r.n. 13. Vitamin D2 50,000 units daily. Home and hospitalized medications reviewed. Currently not on antibiotics. ALLERGIES: Hydromorphine, hydromorphone, pioglitazone SOCIAL HISTORY: Lives at home with . disabled. denies tobacco, etoh, illicit drug use. FAMILY HISTORY: Noncontributory REVIEW OF SYSTEMS: 11 point ROS negative except for that mentioned in HPI above. PHYSICAL EXAM: VITAL SIGNS: afebrile. vitals reviewed. GEN: awake, alert, non toxic appearing, morbidly obese. has just thrown his lunch all over the floor in a fit of anger prior to my entry into the room. HEENT: Mild pale conjunctiva. oral mucosa dry, phaynx w/o exudate or effusion. No icterus. Head normocephalic, neck supple. unable to assess JVD due to body habitus. NECK: No cervical LAD CHEST: Clear to auscultation bilaterally. HEART: S1 and S2, no murmurs, no rubs. ABDOMEN: soft, non tender, non distended, normoactive bowel sounds. large pannus. EXTREMITIES: No cyanosis, no clubbing, 1+ BLE edema. L foot with flat healing open wound overlying dorsum of foot. no surrounding erythema. peripheral pulses intact. BLE hyperpigmentation and thickened thin. NEUROLOGIC: Awake, alert, no focal neurologic motor deficits. sensation to light tough intact BLE throughout. : deferred LYMPH: no LAD RECTAL: deferred skin: xerosis to b/l. several scabs in varying degrees of healing. no acanthosis nigricans. LABORATORY AND DIAGNOSTIC DATA: WBC 8.8, HGBA1c 10.0, Pro BNAP 5680, LDL 37, TSH 3.6 rectabl VRE+ nares MRSA + RUN DATE: 11/05/16 [facility] [address] RUN TIME: 16[address] [place] [address] Kieran Cedeño MD, PhD, Laboratory Sie[employer] Developer Specimen Inquiry Report PATIENT: RENÉ LEE LOC: U # : [id number] AGE/SX: 51/M ROOM: 206 REG : 11/03/[address]: Kip Torres MD : 1965 BED: 2 DIS : STATUS: ADM IN TLOC: SPEC #: [id number] [place]: 11/03/16 STATUS: RES REQ #: [id number] RECD: 11/03/16-143 [facility] [address]: Hasmukh Carrenouniversity hospitalMilana Almonte NP SOURCE: SACRAL ENTR: 11/03/16-[address]: Kip Torres MD SPDESC: WOUND NON PHYSICIAN MARIO PONCE ORDERED: WOUND Procedure Result GRAM STAIN Final GRAM STAIN RESULT 11/04 [facility] WH[facility] BLOOD CELLS FEW GRAM POSITIVE COCCI WOUND CULTURE Preliminary COMMENTS: KNOWN MRSA. Organism 1 STAPHYLOCOCCUS AUREUS - MRSA GROWTH: 4+ Organism 2 ESCHERICHIA COLI GROWTH: 2+ STA AUR MR ESC COLI M.I.C. RX M.I.C. RX --------- --- --------- --- AMPICILLIN <=2 S CEFAZOLIN <=4 S CEFTRIAXONE <=1 S CIPROFLOXACIN >=8 R <=0.25 S CLINDAMYCIN <=0.25 S ERYTHROMYCIN <=0.25 S ERTAPENEM <=0.5 S GENTAMICIN 4 S <=1 S LEVOFLOXACIN >=8 R <=0.12 S IMIPENEM <=0.25 S OXACILLIN >=4 R BENZYLPENICILLIN >=0.5 R TETRACYCLINE >=16 R TRIMETHOPRIM/SULFA <=10 S <=20 S VANCOMYCIN <=0.5 S AMIKACIN <=2 S PIPERACILLIN/TAZOBACTAM <=4 S RIFAMPIN <=0.5 S Patient: RENÉ LEE Location: 206-2 2E END OF REPORT RADIOLOGY: Patient : RENÉ LEE Referring Physician: Milana Noe NP (Vanchtein) ID Number: [id number] Service Date: 11/05/16 : 1965 Report Date: 11/05/16 Gender: M Accession No.: [id number] Location: 2E Procedure: XRAY Chest 1v Indication: Dyspnea Comparison: 11/03/16 A single view chest radiograph was obtained. Findings: Some vascular prominence demonstrated once again. There is evidence of a left pleural effusion. Cardiomegaly is relatively stable. Impression: Mild interstitial edema may be present. No definite change EXAM: Two-dimensional and M-mode echocardiogram with Doppler and color Doppler. INDICATION Chest Pain M-Mode DIMENSIONS IVSd 1.5 (0.7-1.1cm) Left Atrium (MM) 4.6 (1.6-4.0cm) LVDd 6.4 (3.5-5.6cm) Aortic Root 2.9 (2.0-3.7cm) PWd 1.1 (0.7-1.1cm) Aortic Cusp Exc. 2.0 (1.5-2.0cm) LVDs 5.6 (2.5-4.0cm) PWs 1.3 cm Severe left ventricular enlargement by 2D. Severe global left ventricular hypokinesis. Left ventricular ejection fraction estimated to be 10-15 %. Mild left ventricular hypertrophy. Trivial pericardial effusion. Large pleural effusion. Mild bi-atrial enlargement. Mild right ventricular enlargement. Mild focal aortic valve sclerosis with adequate cusp excursion. Mildly thickened mitral valve leaflets with normal excursion. Mild mitral annulus and aortic root calcification. Normal pulmonic valve structure. Normal tricuspid valve structure. IVC dilated at 2.5 cm with physiologic collapse. A color flow and spectral Doppler study was performed and revealed: Trace aortic regurgitation. Moderate eccentric mitral regurgitation. Left ventricular diastolic function could not be determined due to A-Fib. Moderate to severe tricuspid regurgitation. Tricuspid systolic velocities suggests peak right ventricular systolic pressure of 46 mmHg, consistent with moderate pulmonary hypertension. Mild pulmonic regurgitation present. Dictated By: ARI ROWLEY Electronically Signed By: ARI ROWLEY Signed Date/Time 11/04/16 8687 ASSESSMENT AND PLAN ASSESSMENT: 1) L foot post-traumatic ulcer, delayed healing owing to microvascular disease from suboptimally controlled DM2. no evidence of infection. 2) L foot colonized superficially with MRSA 3) afebrile 4) no leukocytosis 5) suboptimally controlled DM2 6) chronic venous stasis, bilateral lower extremity 7) poor self-care 8) MRSA colonized 9) VRE colonized PLAN: -no antiobiotics indicated -wound care and topical care per wound care and podiatry recommendations -monitor clinically -no additional labs or imaging recommended at this time -if wound fails to heal over the next 2-3 weeks with good topical care and improved intermodal truck driver glycemic control, should have repeat evaluation including MRI L foot to r/o chronic osteomyelitis, but this is not suspected at this time. -continue contact isolation while in hospital Thank you for this consultation. Will continue to follow. Covering for Dr. Cho, please call me with questions, Reddy Rodriguez M.D. Nov 05, 2016 16:03
[2016-11-06] VITALS (7 sets, daily range): BP systolic 122–144; BP diastolic 60–92
[2016-11-06] MEDS: NovoLOG Insulin Flexpen SUBQ SCH ×4 (06:45→21:25)
[2016-11-06] MEDS: Aspirin Baby 81mg ORAL SCH (08:56)
[2016-11-06] MEDS: Eliquis 2.5mg tablet ORAL SCH ×2 (08:56→17:55)
[2016-11-06] MEDS: Spironolactone 25mg tab ORAL SCH (08:56)
[2016-11-06] MEDS: Lisinopril 10mg tab ORAL SCH (08:57)
[2016-11-06] MEDS: Amiodarone 200mg tab ORAL SCH (08:57)
[2016-11-06] MEDS: MAGNESIUM CHLORIDE 71.5 MG ORAL SCH ×2 (08:58→17:54)
[2016-11-06] MEDS: Digoxin 0.125mg tab ORAL SCH (08:59)
[2016-11-06 09:38] LABS: BASOPHILS % (AUTO) 2.1 % (0.0-2.0); EOSINOPHILS % (AUTO) 6.2 % (0.0-3.0); LYMPHOCYTES % (AUTO) 9.8 % (20.0-45.0); MEAN CORPUSCULAR HGB CONC 29.1 G/DL (32.0-36.0); MEAN CORPUSCULAR VOLUME 79 FL (80-99); MEAN PLATELET VOLUME 7.2 FL (6.5-10.1); MONOCYTES % (AUTO) 7.3 % (1.0-10.0); NEUTROPHILS % (AUTO) 74.6 % (45.0-75.0); PLATELET COUNT 278 K/UL (150-450); RED BLOOD COUNT 5.42 M/UL (4.70-6.10); WHITE BLOOD COUNT 8.1 K/UL (4.8-10.8)
[2016-11-06 10:20] LABS: ANION GAP 12 (5-15); CARBON DIOXIDE 32 mEQ/L (20-30); CHLORIDE 95 mEQ/L (98-107); CREATININE 1.1 mg/dL (0.7-1.2); GLOMERULAR FILTRATION RATE > 60 mL/min (>60); HEMOLYSIS 5; POTASSIUM 3.7 mEQ/L (3.4-4.9); SODIUM 139 mEQ/L (135-145)
--- NOTE | 2016-11-06 11:50 | Pulmonology Progress Note ---
Assessment/Plan Problems: (1) Atrial fibrillation (2) End-stage systolic heart failure (3) EF 10% (4) Foot abscess, left (5) Diabetes mellitus type II, uncontrolled (6) Morbid obesity with BMI of 60.0-69.9, adult Assessment/Plan continue diuretics check electrolytes heart rate controlled wound care on apixiban continue lasix 80 bid, digoxin, amiodarone, lisinopril, coreg etc. dc planning when ok with Cardio Subjective Interval Events: still flutter, around 90 Allergies: Coded Allergies: HYDROMORPHONE (Unverified Allergy, Unknown, 11/03/16) PIOGLITAZONE (Verified Allergy, Unknown, 11/03/16) Uncoded Allergies: HYDROMORPHINE (Allergy, Unknown, 11/03/16) Objective Last 24 Hour Vital Signs Date Time Temp Pulse Resp B/P Pulse Ox O2 Delivery O2 Flow Rate FiO2 11/06/16 08:59 84 11/06/16 08:58 84 140/60 11/06/16 08:57 140/60 11/06/16 08:00 96.8 84 21 140/60 94 Room Air 11/06/16 08:00 85 11/06/16 04:00 87 11/06/16 04:00 98.0 68 20 139/63 97 Room Air 11/06/16 00:00 98.0 64 20 144/64 95 Room Air 11/06/16 00:00 90 11/05/16 20:40 79 139/70 11/05/16 20:00 90 11/05/16 19:30 70 20 Room Air 21 11/05/16 16:00 117 11/05/16 16:00 97.9 67 20 155/71 94 Room Air 11/05/16 12:00 97.9 87 20 114/71 95 Room Air 11/05/16 12:00 90 Intake and Output 11/05/16 11/06/16 19:00 07:00 Intake Total 460 ml Output Total 2800 ml 1000 ml Balance -2340 ml -1000 ml Intake Oral 400 ml IV Total 60 ml Output Urine Total 2800 ml 1000 ml # Bowel Movements 2 General Appearance: WD/WN HEENT: atraumatic Respiratory/Chest: chest wall non-tender, lungs clear Cardiovascular: normal peripheral pulses, normal rate Abdomen: normal bowel sounds, soft, non tender Extremities: no cyanosis Neurologic/Psychiatric: damage prevention coordinator II-XII grossly normal Lymphatic: no neck adenopathy Laboratory Tests 11/05/16 12:00: Troponin I < 0.30 11/06/16 09:00: White Blood Count 8.1, Red Blood Count 5.42, Hemoglobin 12.4L, Hematocrit 42.8, Mean Corpuscular Volume 79L, Mean Corpuscular Hemoglobin 23.0L, Mean Corpuscular Hemoglobin Concent 29.1L, Red Cell Distribution Width 17.0H, Platelet Count 278, Mean Platelet Volume 7.2, Neutrophils (%) (Auto) 74.6, Lymphocytes (%) (Auto) 9.8L, Monocytes (%) (Auto) 7.3, Eosinophils (%) (Auto) 6.2H, Basophils (%) (Auto) 2.1H, Sodium Level 139, Potassium Level 3.7, Chloride Level 95L, Carbon Dioxide Level 32H, Anion Gap 12, Blood Urea Nitrogen 22, Creatinine 1.1, Estimat Glomerular Filtration Rate > 60, Glucose Level 293#H , Calcium Level 9.0, Pro-B-Type Natriuretic Peptide 4928H Current Medications Medications (Trade) Dose Ordered Sig/Lexii Route PRN Reason Start Time Stop Time Status Last Admin Dose Admin Acetaminophen (Tylenol) 650 mg Q4H PRN ORAL Mild Pain (Pain Scale 1-3) 11/03/16 12:00 12/03/16 11:59 Al Hydroxide/Mg Hydroxide (Mylanta II) 30 ml Q6H PRN ORAL dyspepsia 11/03/16 12:00 12/03/16 11:59 Albuterol/ Ipratropium (DuoNeb 0.5-3(2.5)mg/3ml) 3 ml Q6H PRN HHN Shortness of Breath 11/03/16 12:00 11/08/16 11:59 Amiodarone HCl (Cordarone) 200 mg DAILY ORAL 11/04/16 09:00 12/04/16 08:59 11/06/16 08:57 Apixaban (Eliquis) 5 mg BID ORAL 11/03/16 18:00 12/03/16 17:59 11/06/16 08:56 Aspirin (ASA) 81 mg DAILY ORAL 11/04/16 09:00 12/04/16 08:59 11/06/16 08:56 Carvedilol (Coreg) 3.125 mg EVERY 12 HOURS ORAL 11/03/16 21:00 12/03/16 20:59 11/06/16 08:58 Dextrose (Dextrose 50%) STAT PRN IV Hypoglycemia 11/03/16 12:15 12/03/16 12:14 Digoxin (Lanoxin) 0.125 mg DAILY ORAL 11/04/16 09:00 12/04/16 08:59 11/06/16 08:59 Furosemide (Lasix) 80 mg EVERY 12 HOURS IV 11/05/16 21:00 12/05/16 20:59 11/06/16 08:57 Insulin Aspart (NovoLOG) BEFORE MEALS AND HS SUBQ 11/03/16 16:30 12/03/16 16:29 11/06/16 06:45 Lisinopril (Zestril) 10 mg DAILY ORAL 11/04/16 09:00 12/04/16 08:59 11/06/16 08:57 Magnesium Chloride (Slow-Mag) 71.5 mg TWICE A DAY ORAL 11/05/16 14:30 12/05/16 14:29 11/06/16 08:58 Nitroglycerin (Ntg) 0.4 mg Q5M PRN SL Prn Chest Pain 11/03/16 12:00 12/03/16 11:59 Ondansetron HCl (Zofran) 4 mg Q6H PRN IVP Nausea & Vomiting 11/03/16 12:00 12/03/16 11:59 Polyethylene Glycol (Miralax) 17 gm DAILYPRN PRN ORAL Constipation 11/03/16 12:00 12/03/16 11:59 Spironolactone (Aldactone) 25 mg DAILY ORAL 11/04/16 09:00 12/04/16 08:59 11/06/16 08:56 Temazepam (Restoril) 15 mg DAILYPRN PRN ORAL Insomnia 11/03/16 12:00 11/10/16 11:59 Tramadol HCl (Ultram) 50 mg Q6H PRN ORAL Moderate Pain (Pain Scale 4-6) 11/03/16 12:00 11/10/16 11:59 MELA REBOLLEDO Nov 06, 2016 11:50
--- NOTE | 2016-11-06 13:29 | Infectious Diseases Prog Note ---
Assessment/Plan Assessment/Plan ASSESSMENT: 1) L foot post-traumatic ulcer, delayed healing owing to microvascular disease from suboptimally controlled DM2. no evidence of infection. 2) L foot colonized superficially with MRSA 3) afebrile 4) no leukocytosis 5) suboptimally controlled DM2 6) chronic venous stasis, bilateral lower extremity 7) poor self-care 8) MRSA colonized 9) VRE colonized PLAN: -no antiobiotics indicated -wound care and topical care per wound care and podiatry recommendations -monitor clinically -no additional labs or imaging recommended at this time -if wound fails to heal over the next 2-3 weeks with good topical care and improved oysterman glycemic control, should have repeat evaluation including MRI L foot to r/o chronic osteomyelitis, but this is not suspected at this time. -continue contact isolation while in hospital Subjective Constitutional: Reports: no symptoms Musculoskeletal: Reports: no symptoms Allergies: Coded Allergies: HYDROMORPHONE (Unverified Allergy, Unknown, 11/03/16) PIOGLITAZONE (Verified Allergy, Unknown, 11/03/16) Uncoded Allergies: HYDROMORPHINE (Allergy, Unknown, 11/03/16) Objective Vital Signs Last 24 Hour Vital Signs Date Time Temp Pulse Resp B/P Pulse Ox O2 Delivery O2 Flow Rate FiO2 11/06/16 12:00 97.1 85 20 127/78 96 Room Air 11/06/16 12:00 90 11/06/16 08:59 84 11/06/16 08:58 84 140/60 11/06/16 08:57 140/60 11/06/16 08:00 96.8 84 21 140/60 94 Room Air 11/06/16 08:00 85 11/06/16 04:00 87 11/06/16 04:00 98.0 68 20 139/63 97 Room Air 11/06/16 00:00 98.0 64 20 144/64 95 Room Air 11/06/16 00:00 90 11/05/16 20:40 79 139/70 11/05/16 20:00 90 11/05/16 19:30 70 20 Room Air 21 11/05/16 16:00 117 11/05/16 16:00 97.9 67 20 155/71 94 Room Air Height (Feet): 5 Height (Inches): 10.00 Weight (Pounds): 435 Objective GEN: awake, alert, non toxic appearing, morbidly obese. has just thrown his lunch all over the floor in a fit of anger prior to my entry into the room. HEENT: Mild pale conjunctiva. oral mucosa dry, phaynx w/o exudate or effusion. No icterus. Head normocephalic, neck supple. unable to assess JVD due to body habitus. NECK: No cervical LAD CHEST: Clear to auscultation bilaterally. HEART: S1 and S2, no murmurs, no rubs. ABDOMEN: soft, non tender, non distended, normoactive bowel sounds. large pannus. EXTREMITIES: No cyanosis, no clubbing, 1+ BLE edema. L foot with flat healing open wound overlying dorsum of foot. no surrounding erythema. peripheral pulses intact. BLE hyperpigmentation and thickened thin. NEUROLOGIC: Awake, alert, no focal neurologic motor deficits. sensation to light tough intact BLE throughout. : deferred LYMPH: no LAD RECTAL: deferred skin: xerosis to b/l. several scabs in varying degrees of healing. no acanthosis nigricans. Laboratory Tests Test 11/06/16 09:00 White Blood Count 8.1 K/UL (4.8-10.8) Red Blood Count 5.42 M/UL (4.70-6.10) Hemoglobin 12.4 G/DL (14.2-18.0) L Hematocrit 42.8 % (42.0-52.0) Mean Corpuscular Volume 79 FL (80-99) L Mean Corpuscular Hemoglobin 23.0 PG (27.0-31.0) L Mean Corpuscular Hemoglobin Concent 29.1 G/DL (32.0-36.0) L Red Cell Distribution Width 17.0 % (11.6-14.8) H Platelet Count 278 K/UL (150-450) Mean Platelet Volume 7.2 FL (6.5-10.1) Neutrophils (%) (Auto) 74.6 % (45.0-75.0) Lymphocytes (%) (Auto) 9.8 % (20.0-45.0) L Monocytes (%) (Auto) 7.3 % (1.0-10.0) Eosinophils (%) (Auto) 6.2 % (0.0-3.0) H Basophils (%) (Auto) 2.1 % (0.0-2.0) H Sodium Level 139 mEQ/L (135-145) Potassium Level 3.7 mEQ/L (3.4-4.9) Chloride Level 95 mEQ/L (98-107) L Carbon Dioxide Level 32 mEQ/L (20-30) H Anion Gap 12 (5-15) Blood Urea Nitrogen 22 mg/dL (7-23) Creatinine 1.1 mg/dL (0.7-1.2) Estimat Glomerular Filtration Rate > 60 mL/min (>60) Glucose Level 293 mg/dL (74-106) #H Calcium Level 9.0 mg/dL (8.6-10.2) Pro-B-Type Natriuretic Peptide 4928 pg/mL (0-125) H Current Medications Medications (Trade) Dose Ordered Sig/Lexii Route PRN Reason Start Time Stop Time Status Last Admin Dose Admin Acetaminophen (Tylenol) 650 mg Q4H PRN ORAL Mild Pain (Pain Scale 1-3) 11/03/16 12:00 12/03/16 11:59 Al Hydroxide/Mg Hydroxide (Mylanta II) 30 ml Q6H PRN ORAL dyspepsia 11/03/16 12:00 12/03/16 11:59 Albuterol/ Ipratropium (DuoNeb 0.5-3(2.5)mg/3ml) 3 ml Q6H PRN HHN Shortness of Breath 11/03/16 12:00 11/08/16 11:59 Amiodarone HCl (Cordarone) 200 mg DAILY ORAL 11/04/16 09:00 12/04/16 08:59 11/06/16 08:57 Apixaban (Eliquis) 5 mg BID ORAL 11/03/16 18:00 12/03/16 17:59 11/06/16 08:56 Aspirin (ASA) 81 mg DAILY ORAL 11/04/16 09:00 12/04/16 08:59 11/06/16 08:56 Carvedilol (Coreg) 3.125 mg EVERY 12 HOURS ORAL 11/03/16 21:00 12/03/16 20:59 11/06/16 08:58 Dextrose (Dextrose 50%) STAT PRN IV Hypoglycemia 11/03/16 12:15 12/03/16 12:14 Digoxin (Lanoxin) 0.125 mg DAILY ORAL 11/04/16 09:00 12/04/16 08:59 11/06/16 08:59 Furosemide (Lasix) 80 mg EVERY 12 HOURS IV 11/05/16 21:00 12/05/16 20:59 11/06/16 08:57 Insulin Aspart (NovoLOG) BEFORE MEALS AND HS SUBQ 11/03/16 16:30 12/03/16 16:29 11/06/16 12:24 Lisinopril (Zestril) 10 mg DAILY ORAL 11/04/16 09:00 12/04/16 08:59 11/06/16 08:57 Magnesium Chloride (Slow-Mag) 71.5 mg TWICE A DAY ORAL 11/05/16 14:30 12/05/16 14:29 11/06/16 08:58 Nitroglycerin (Ntg) 0.4 mg Q5M PRN SL Prn Chest Pain 11/03/16 12:00 12/03/16 11:59 Ondansetron HCl (Zofran) 4 mg Q6H PRN IVP Nausea & Vomiting 11/03/16 12:00 12/03/16 11:59 Polyethylene Glycol (Miralax) 17 gm DAILYPRN PRN ORAL Constipation 11/03/16 12:00 12/03/16 11:59 Spironolactone (Aldactone) 25 mg DAILY ORAL 11/04/16 09:00 12/04/16 08:59 11/06/16 08:56 Temazepam (Restoril) 15 mg DAILYPRN PRN ORAL Insomnia 11/03/16 12:00 11/10/16 11:59 Tramadol HCl (Ultram) 50 mg Q6H PRN ORAL Moderate Pain (Pain Scale 4-6) 11/03/16 12:00 11/10/16 11:59 Reddy Rodriguez M.D. Nov 06, 2016 13:29
--- NOTE | 2016-11-06 16:12 | Internal Med Progress Note ---
Subjective Date of Service: Nov 06, 2016 Physician Name Amita Neal Attending Physician Kip Torres MD Current Medications Medications (Trade) Dose Ordered Sig/Lexii Route PRN Reason Start Time Stop Time Status Last Admin Dose Admin Acetaminophen (Tylenol) 650 mg Q4H PRN ORAL Mild Pain (Pain Scale 1-3) 11/03/16 12:00 12/03/16 11:59 Al Hydroxide/Mg Hydroxide (Mylanta II) 30 ml Q6H PRN ORAL dyspepsia 11/03/16 12:00 12/03/16 11:59 Albuterol/ Ipratropium (DuoNeb 0.5-3(2.5)mg/3ml) 3 ml Q6H PRN HHN Shortness of Breath 11/03/16 12:00 11/08/16 11:59 Amiodarone HCl (Cordarone) 200 mg DAILY ORAL 11/04/16 09:00 12/04/16 08:59 11/06/16 08:57 Apixaban (Eliquis) 5 mg BID ORAL 11/03/16 18:00 12/03/16 17:59 11/06/16 08:56 Aspirin (ASA) 81 mg DAILY ORAL 11/04/16 09:00 12/04/16 08:59 11/06/16 08:56 Carvedilol (Coreg) 3.125 mg EVERY 12 HOURS ORAL 11/03/16 21:00 12/03/16 20:59 11/06/16 08:58 Dextrose (Dextrose 50%) STAT PRN IV Hypoglycemia 11/03/16 12:15 12/03/16 12:14 Digoxin (Lanoxin) 0.125 mg DAILY ORAL 11/04/16 09:00 12/04/16 08:59 11/06/16 08:59 Furosemide (Lasix) 80 mg EVERY 12 HOURS IV 11/05/16 21:00 12/05/16 20:59 11/06/16 08:57 Insulin Aspart (NovoLOG) BEFORE MEALS AND HS SUBQ 11/03/16 16:30 12/03/16 16:29 11/06/16 12:24 Lisinopril (Zestril) 10 mg DAILY ORAL 11/04/16 09:00 12/04/16 08:59 11/06/16 08:57 Magnesium Chloride (Slow-Mag) 71.5 mg TWICE A DAY ORAL 11/05/16 14:30 12/05/16 14:29 11/06/16 08:58 Nitroglycerin (Ntg) 0.4 mg Q5M PRN SL Prn Chest Pain 11/03/16 12:00 12/03/16 11:59 Ondansetron HCl (Zofran) 4 mg Q6H PRN IVP Nausea & Vomiting 11/03/16 12:00 12/03/16 11:59 Polyethylene Glycol (Miralax) 17 gm DAILYPRN PRN ORAL Constipation 11/03/16 12:00 12/03/16 11:59 Spironolactone (Aldactone) 25 mg DAILY ORAL 11/04/16 09:00 12/04/16 08:59 11/06/16 08:56 Temazepam (Restoril) 15 mg DAILYPRN PRN ORAL Insomnia 11/03/16 12:00 11/10/16 11:59 Tramadol HCl (Ultram) 50 mg Q6H PRN ORAL Moderate Pain (Pain Scale 4-6) 11/03/16 12:00 11/10/16 11:59 Allergies: Coded Allergies: HYDROMORPHONE (Unverified Allergy, Unknown, 11/03/16) PIOGLITAZONE (Verified Allergy, Unknown, 11/03/16) Uncoded Allergies: HYDROMORPHINE (Allergy, Unknown, 11/03/16) ROS Limited/Unobtainable: No Constitutional: Reports: no symptoms HEENT: Reports: no symptoms Cardiovascular: Reports: chest pain Respiratory: Reports: no symptoms Gastrointestinal/Abdominal: Reports: no symptoms Genitourinary: Reports: no symptoms Neurologic/Psychiatric: Reports: no symptoms Subjective 51 YO M admitted with shortness of breath and chest pain. Cover for Int Blu-Dr Torres Objective Last Vital Signs Date Time Temp Pulse Resp B/P Pulse Ox O2 Delivery O2 Flow Rate FiO2 11/06/16 12:00 97.1 85 20 127/78 96 Room Air 11/05/16 19:30 21 Laboratory Tests Test 11/06/16 09:00 White Blood Count 8.1 K/UL (4.8-10.8) Red Blood Count 5.42 M/UL (4.70-6.10) Hemoglobin 12.4 G/DL (14.2-18.0) L Hematocrit 42.8 % (42.0-52.0) Mean Corpuscular Volume 79 FL (80-99) L Mean Corpuscular Hemoglobin 23.0 PG (27.0-31.0) L Mean Corpuscular Hemoglobin Concent 29.1 G/DL (32.0-36.0) L Red Cell Distribution Width 17.0 % (11.6-14.8) H Platelet Count 278 K/UL (150-450) Mean Platelet Volume 7.2 FL (6.5-10.1) Neutrophils (%) (Auto) 74.6 % (45.0-75.0) Lymphocytes (%) (Auto) 9.8 % (20.0-45.0) L Monocytes (%) (Auto) 7.3 % (1.0-10.0) Eosinophils (%) (Auto) 6.2 % (0.0-3.0) H Basophils (%) (Auto) 2.1 % (0.0-2.0) H Sodium Level 139 mEQ/L (135-145) Potassium Level 3.7 mEQ/L (3.4-4.9) Chloride Level 95 mEQ/L (98-107) L Carbon Dioxide Level 32 mEQ/L (20-30) H Anion Gap 12 (5-15) Blood Urea Nitrogen 22 mg/dL (7-23) Creatinine 1.1 mg/dL (0.7-1.2) Estimat Glomerular Filtration Rate > 60 mL/min (>60) Glucose Level 293 mg/dL (74-106) #H Calcium Level 9.0 mg/dL (8.6-10.2) Pro-B-Type Natriuretic Peptide 4928 pg/mL (0-125) H Intake and Output 11/05/16 11/06/16 19:00 07:00 Intake Total 460 ml Output Total 2800 ml 1000 ml Balance -2340 ml -1000 ml Intake Oral 400 ml IV Total 60 ml Output Urine Total 2800 ml 1000 ml # Bowel Movements 2 Objective General Appearance: no apparent distress, alert, obese EENT: PERRL/EOMI, normal ENT inspection Neck: non-tender, normal alignment, supple Cardiovascular: normal peripheral pulses, normal rate, regular rhythm, no gallop/murmur, no JVD Respiratory/Chest: chest wall non-tender, crackles/rales, rhonchi - bilaterally , expiratory wheezing Abdomen: normal bowel sounds, non tender, soft, no organomegaly, no mass Extremities: normal range of motion, non-tender Edema: trace edema Neurologic: user experience researcher II-XII grossly normal, no motor/sensory deficits Skin: normal pigmentation, warm/dry Assessment/Plan Problem List: (1) COPD (chronic obstructive pulmonary disease) Assessment & Plan: See pulmonary note. (2) Sleep apnea, obstructive (3) SOB (shortness of breath) (4) Atrial fibrillation Assessment & Plan: See cardiology note. Cont amiodarone and digoxin. Continue eliquis (5) Foot abscess, left Assessment & Plan: See podiatry consult. (6) Diabetes mellitus type II, uncontrolled Assessment & Plan: Continue novolog sliding scale. (7) HTN (hypertension) Assessment & Plan: Continue lisinopril. (8) Hypercholesteremia (9) Peripheral vascular disease (10) Morbid obesity with BMI of 60.0-69.9, adult (11) Chest pain Assessment & Plan: See cardiology note. (12) Acute exacerbation of CHF (congestive heart failure) Assessment & Plan: LVEF=10-15%. See cardiology note. ?AICD? (13) Cardiomyopathy Status: not improved AMITA NEAL Nov 06, 2016 16:12
--- NOTE | 2016-11-06 16:57 | Cardiac Electrophysiology PN ---
Assessment/Plan Assessment/Plan 1. Paroxysmal atrial fibrillation, was in SR on admission and now in atrial flutter. Continue amiodarone 200 mg daily, Dig and Coreg and Eliquis 5 mg b.i.d. 2. Exacerbation of CHF. His echocardiogram showed ejection fraction of only 10% to 15%. On Lasix 80 iv bid. Continue Coreg, lisinopril, and Aldactone. Won't fit on any table for cardiac cath or ICD placement in view of 420 lbs. 3. Hypertension, Continue current CHF meds. 4. Morbid obesity, more than 420 pounds. 5. History of transient ischemic attack. 6. Diabetes. 7. History of sleep apnea. MAMIE RN Subjective Subjective . No chest pain.Remained in atrial flutter with controlled rate in 80s. Objective Last 24 Hour Vital Signs Date Time Temp Pulse Resp B/P Pulse Ox O2 Delivery O2 Flow Rate FiO2 11/06/16 16:00 97.7 70 21 127/81 98 Room Air 11/06/16 12:00 97.1 85 20 127/78 96 Room Air 11/06/16 12:00 90 11/06/16 08:59 84 11/06/16 08:58 84 140/60 11/06/16 08:57 140/60 11/06/16 08:00 96.8 84 21 140/60 94 Room Air 11/06/16 08:00 85 11/06/16 04:00 87 11/06/16 04:00 98.0 68 20 139/63 97 Room Air 11/06/16 00:00 98.0 64 20 144/64 95 Room Air 11/06/16 00:00 90 11/05/16 20:40 79 139/70 11/05/16 20:00 90 11/05/16 19:30 70 20 Room Air 21 Intake and Output 11/05/16 11/06/16 19:00 07:00 Intake Total 460 ml Output Total 2800 ml 1000 ml Balance -2340 ml -1000 ml Intake Oral 400 ml IV Total 60 ml Output Urine Total 2800 ml 1000 ml # Bowel Movements 2 Laboratory Tests Test 11/06/16 09:00 White Blood Count 8.1 K/UL (4.8-10.8) Red Blood Count 5.42 M/UL (4.70-6.10) Hemoglobin 12.4 G/DL (14.2-18.0) L Hematocrit 42.8 % (42.0-52.0) Mean Corpuscular Volume 79 FL (80-99) L Mean Corpuscular Hemoglobin 23.0 PG (27.0-31.0) L Mean Corpuscular Hemoglobin Concent 29.1 G/DL (32.0-36.0) L Red Cell Distribution Width 17.0 % (11.6-14.8) H Platelet Count 278 K/UL (150-450) Mean Platelet Volume 7.2 FL (6.5-10.1) Neutrophils (%) (Auto) 74.6 % (45.0-75.0) Lymphocytes (%) (Auto) 9.8 % (20.0-45.0) L Monocytes (%) (Auto) 7.3 % (1.0-10.0) Eosinophils (%) (Auto) 6.2 % (0.0-3.0) H Basophils (%) (Auto) 2.1 % (0.0-2.0) H Sodium Level 139 mEQ/L (135-145) Potassium Level 3.7 mEQ/L (3.4-4.9) Chloride Level 95 mEQ/L (98-107) L Carbon Dioxide Level 32 mEQ/L (20-30) H Anion Gap 12 (5-15) Blood Urea Nitrogen 22 mg/dL (7-23) Creatinine 1.1 mg/dL (0.7-1.2) Estimat Glomerular Filtration Rate > 60 mL/min (>60) Glucose Level 293 mg/dL (74-106) #H Calcium Level 9.0 mg/dL (8.6-10.2) Pro-B-Type Natriuretic Peptide 4928 pg/mL (0-125) H Objective NECK: Mild JVD. LUNGS: Decreased breath sounds. CARDIOVASCULAR: Distant heart sounds and irregular. ABDOMEN: Morbidly obese. EXTREMITIES: A 2+ pitting edema. DAVID BRITO Nov 06, 2016 16:57
[2016-11-07 04:01] VITALS: BP 129/86
--- NOTE | 2016-11-07 05:59 | Infectious Diseases Prog Note ---
Assessment/Plan Assessment/Plan ASSESSMENT: 1) L foot post-traumatic ulcer, delayed healing owing to microvascular disease from suboptimally controlled DM2. no evidence of infection. 2) L foot colonized superficially with MRSA 3) afebrile 4) no leukocytosis 5) suboptimally controlled DM2 6) chronic venous stasis, bilateral lower extremity 7) poor self-care 8) MRSA colonized 9) VRE colonized PLAN: -no antiobiotics indicated -wound care and topical care per wound care and podiatry recommendations -monitor clinically off antiobiotics -no additional labs or imaging recommended at this time -if wound fails to heal over the next 2-3 weeks with good topical care and improved watermaster glycemic control, should have repeat evaluation including MRI L foot to r/o chronic osteomyelitis, but this is not suspected at this time. -continue contact isolation while in hospital Subjective Constitutional: Reports: no symptoms Musculoskeletal: Reports: swelling Allergies: Coded Allergies: HYDROMORPHONE (Unverified Allergy, Unknown, 11/03/16) PIOGLITAZONE (Verified Allergy, Unknown, 11/03/16) Uncoded Allergies: HYDROMORPHINE (Allergy, Unknown, 11/03/16) Objective Vital Signs Last 24 Hour Vital Signs Date Time Temp Pulse Resp B/P Pulse Ox O2 Delivery O2 Flow Rate FiO2 11/07/16 04:01 98.3 82 20 129/86 98 Room Air 11/07/16 04:00 88 11/07/16 00:00 87 11/06/16 23:53 98.4 87 19 133/81 95 Room Air 11/06/16 21:22 91 138/72 11/06/16 20:05 97.7 88 20 122/92 94 Room Air 11/06/16 20:00 86 11/06/16 19:30 82 20 Room Air 21 11/06/16 16:00 97.7 70 21 127/81 98 Room Air 11/06/16 16:00 92 11/06/16 12:00 97.1 85 20 127/78 96 Room Air 11/06/16 12:00 90 11/06/16 08:59 84 11/06/16 08:58 84 140/60 11/06/16 08:57 140/60 11/06/16 08:00 96.8 84 21 140/60 94 Room Air 11/06/16 08:00 85 Height (Feet): 5 Height (Inches): 10.00 Weight (Pounds): 435 Objective GEN: awake, alert, non toxic appearing, morbidly obese. HEENT: NL conjunctiva. oral mucosa moist, pharynx w/o exudate or effusion. No icterus. Head normocephalic, neck supple. unable to assess JVD due to body habitus. NECK: No cervical LAD CHEST: Clear to auscultation bilaterally. HEART: S1 and S2, no murmurs, no rubs. ABDOMEN: soft, non tender, non distended, normoactive bowel sounds. large pannus. EXTREMITIES: No cyanosis, no clubbing, 1+ BLE edema. L foot with flat healing open wound overlying dorsum of foot. no surrounding erythema. peripheral pulses intact. BLE hyperpigmentation and thickened thin. NEUROLOGIC: Awake, alert, no focal neurologic motor deficits. sensation to light tough intact BLE throughout. : deferred LYMPH: no LAD RECTAL: deferred skin: xerosis to b/l. several scabs in varying degrees of healing. no acanthosis nigricans. Laboratory Tests Test 11/06/16 09:00 White Blood Count 8.1 K/UL (4.8-10.8) Red Blood Count 5.42 M/UL (4.70-6.10) Hemoglobin 12.4 G/DL (14.2-18.0) L Hematocrit 42.8 % (42.0-52.0) Mean Corpuscular Volume 79 FL (80-99) L Mean Corpuscular Hemoglobin 23.0 PG (27.0-31.0) L Mean Corpuscular Hemoglobin Concent 29.1 G/DL (32.0-36.0) L Red Cell Distribution Width 17.0 % (11.6-14.8) H Platelet Count 278 K/UL (150-450) Mean Platelet Volume 7.2 FL (6.5-10.1) Neutrophils (%) (Auto) 74.6 % (45.0-75.0) Lymphocytes (%) (Auto) 9.8 % (20.0-45.0) L Monocytes (%) (Auto) 7.3 % (1.0-10.0) Eosinophils (%) (Auto) 6.2 % (0.0-3.0) H Basophils (%) (Auto) 2.1 % (0.0-2.0) H Sodium Level 139 mEQ/L (135-145) Potassium Level 3.7 mEQ/L (3.4-4.9) Chloride Level 95 mEQ/L (98-107) L Carbon Dioxide Level 32 mEQ/L (20-30) H Anion Gap 12 (5-15) Blood Urea Nitrogen 22 mg/dL (7-23) Creatinine 1.1 mg/dL (0.7-1.2) Estimat Glomerular Filtration Rate > 60 mL/min (>60) Glucose Level 293 mg/dL (74-106) #H Calcium Level 9.0 mg/dL (8.6-10.2) Pro-B-Type Natriuretic Peptide 4928 pg/mL (0-125) H Current Medications Medications (Trade) Dose Ordered Sig/Lexii Route PRN Reason Start Time Stop Time Status Last Admin Dose Admin Acetaminophen (Tylenol) 650 mg Q4H PRN ORAL Mild Pain (Pain Scale 1-3) 11/03/16 12:00 12/03/16 11:59 Al Hydroxide/Mg Hydroxide (Mylanta II) 30 ml Q6H PRN ORAL dyspepsia 11/03/16 12:00 12/03/16 11:59 Albuterol/ Ipratropium (DuoNeb 0.5-3(2.5)mg/3ml) 3 ml Q6H PRN HHN Shortness of Breath 11/03/16 12:00 11/08/16 11:59 Amiodarone HCl (Cordarone) 200 mg DAILY ORAL 11/04/16 09:00 12/04/16 08:59 11/06/16 08:57 Apixaban (Eliquis) 5 mg BID ORAL 11/03/16 18:00 12/03/16 17:59 11/06/16 17:55 Aspirin (ASA) 81 mg DAILY ORAL 11/04/16 09:00 12/04/16 08:59 11/06/16 08:56 Carvedilol (Coreg) 3.125 mg EVERY 12 HOURS ORAL 11/03/16 21:00 12/03/16 20:59 11/06/16 21:22 Dextrose (Dextrose 50%) STAT PRN IV Hypoglycemia 11/03/16 12:15 12/03/16 12:14 Digoxin (Lanoxin) 0.125 mg DAILY ORAL 11/04/16 09:00 12/04/16 08:59 11/06/16 08:59 Furosemide (Lasix) 80 mg EVERY 12 HOURS IV 11/05/16 21:00 12/05/16 20:59 11/06/16 21:22 Insulin Aspart (NovoLOG) BEFORE MEALS AND HS SUBQ 11/03/16 16:30 12/03/16 16:29 11/06/16 21:25 Lisinopril (Zestril) 10 mg DAILY ORAL 11/04/16 09:00 12/04/16 08:59 11/06/16 08:57 Magnesium Chloride (Slow-Mag) 71.5 mg TWICE A DAY ORAL 11/05/16 14:30 12/05/16 14:29 11/06/16 17:54 Nitroglycerin (Ntg) 0.4 mg Q5M PRN SL Prn Chest Pain 11/03/16 12:00 12/03/16 11:59 Ondansetron HCl (Zofran) 4 mg Q6H PRN IVP Nausea & Vomiting 11/03/16 12:00 12/03/16 11:59 Polyethylene Glycol (Miralax) 17 gm DAILYPRN PRN ORAL Constipation 11/03/16 12:00 12/03/16 11:59 Spironolactone (Aldactone) 25 mg DAILY ORAL 11/04/16 09:00 12/04/16 08:59 11/06/16 08:56 Temazepam (Restoril) 15 mg DAILYPRN PRN ORAL Insomnia 11/03/16 12:00 11/10/16 11:59 Tramadol HCl (Ultram) 50 mg Q6H PRN ORAL Moderate Pain (Pain Scale 4-6) 11/03/16 12:00 11/10/16 11:59 Reddy Rodriguez M.D. Nov 07, 2016 05:59
[2016-11-07] MEDS: NovoLOG Insulin Flexpen SUBQ SCH ×2 (06:30→11:30)
[2016-11-07 08:00] VITALS: BP 147/81
[2016-11-07] MEDS: Aspirin Baby 81mg ORAL SCH (10:35)
[2016-11-07] MEDS: Spironolactone 25mg tab ORAL SCH (10:35)
[2016-11-07] MEDS: Amiodarone 200mg tab ORAL SCH (10:36)
[2016-11-07] MEDS: MAGNESIUM CHLORIDE 71.5 MG ORAL SCH (10:36)
[2016-11-07] MEDS: Digoxin 0.125mg tab ORAL SCH (10:36)
[2016-11-07] MEDS: Lisinopril 10mg tab ORAL SCH (10:36)
[2016-11-07] MEDS: Eliquis 2.5mg tablet ORAL SCH (10:36)
[2016-11-07 12:00] VITALS: BP 150/74
[2016-11-07] MEDS ORDERED: ALDACTONE25 MG ORAL (12:23)
--- NOTE | 2016-11-07 12:26 | Pulmonology Progress Note ---
Assessment/Plan Problems: (1) Atrial fibrillation (2) End-stage systolic heart failure (3) EF 10% (4) Foot abscess, left (5) Diabetes mellitus type II, uncontrolled (6) Morbid obesity with BMI of 60.0-69.9, adult Assessment/Plan continue diuretics check electrolytes heart rate controlled wound care on apixiban , digoxin, amiodarone, lisinopril, coreg etc. dc planning when ok with Cardio dc to [facility] ID note appreciated. Subjective ROS Limited/Unobtainable: No Constitutional: Reports: no symptoms HEENT: Repors: no symptoms Respiratory: Reports: no symptoms Allergies: Coded Allergies: HYDROMORPHONE (Unverified Allergy, Unknown, 11/03/16) PIOGLITAZONE (Verified Allergy, Unknown, 11/03/16) Uncoded Allergies: HYDROMORPHINE (Allergy, Unknown, 11/03/16) Objective Last 24 Hour Vital Signs Date Time Temp Pulse Resp B/P Pulse Ox O2 Delivery O2 Flow Rate FiO2 11/07/16 10:44 76 147/81 11/07/16 10:36 147/81 11/07/16 10:36 76 11/07/16 08:03 76 20 Room Air 21 11/07/16 08:00 94.5 90 16 147/81 Room Air 11/07/16 04:01 98.3 82 20 129/86 98 Room Air 11/07/16 04:00 88 11/07/16 00:00 87 11/06/16 23:53 98.4 87 19 133/81 95 Room Air 11/06/16 21:22 91 138/72 11/06/16 20:05 97.7 88 20 122/92 94 Room Air 11/06/16 20:00 86 11/06/16 19:30 82 20 Room Air 21 11/06/16 16:00 97.7 70 21 127/81 98 Room Air 11/06/16 16:00 92 Intake and Output 11/06/16 11/07/16 19:00 07:00 Intake Total 300 ml Output Total 1800 ml Balance 300 ml -1800 ml Intake Oral 300 ml Output Urine Total 1800 ml # Voids 3 # Bowel Movements 2 General Appearance: WD/WN HEENT: normocephalic, atraumatic Respiratory/Chest: chest wall non-tender, lungs clear Cardiovascular: normal peripheral pulses, normal rate Abdomen: normal bowel sounds, soft, non tender Extremities: no cyanosis Skin: no rash, no lesions Neurologic/Psychiatric: city administrator II-XII grossly normal, no motor/sensory deficits Lymphatic: no neck adenopathy Current Medications Medications (Trade) Dose Ordered Sig/Lexii Route PRN Reason Start Time Stop Time Status Last Admin Dose Admin Acetaminophen (Tylenol) 650 mg Q4H PRN ORAL Mild Pain (Pain Scale 1-3) 11/03/16 12:00 12/03/16 11:59 Al Hydroxide/Mg Hydroxide (Mylanta II) 30 ml Q6H PRN ORAL dyspepsia 11/03/16 12:00 12/03/16 11:59 Albuterol/ Ipratropium (DuoNeb 0.5-3(2.5)mg/3ml) 3 ml Q6H PRN HHN Shortness of Breath 11/03/16 12:00 11/08/16 11:59 Amiodarone HCl (Cordarone) 200 mg DAILY ORAL 11/04/16 09:00 12/04/16 08:59 11/07/16 10:36 Apixaban (Eliquis) 5 mg BID ORAL 11/03/16 18:00 12/03/16 17:59 11/07/16 10:36 Aspirin (ASA) 81 mg DAILY ORAL 11/04/16 09:00 12/04/16 08:59 11/07/16 10:35 Carvedilol (Coreg) 3.125 mg EVERY 12 HOURS ORAL 11/03/16 21:00 12/03/16 20:59 11/07/16 10:44 Dextrose (Dextrose 50%) STAT PRN IV Hypoglycemia 11/03/16 12:15 12/03/16 12:14 Digoxin (Lanoxin) 0.125 mg DAILY ORAL 11/04/16 09:00 12/04/16 08:59 11/07/16 10:36 Furosemide (Lasix) 80 mg EVERY 12 HOURS IV 11/05/16 21:00 12/05/16 20:59 11/07/16 10:35 Insulin Aspart (NovoLOG) BEFORE MEALS AND HS SUBQ 11/03/16 16:30 12/03/16 16:29 11/06/16 21:25 Lisinopril (Zestril) 10 mg DAILY ORAL 11/04/16 09:00 12/04/16 08:59 11/07/16 10:36 Magnesium Chloride (Slow-Mag) 71.5 mg TWICE A DAY ORAL 11/05/16 14:30 12/05/16 14:29 11/07/16 10:36 Nitroglycerin (Ntg) 0.4 mg Q5M PRN SL Prn Chest Pain 11/03/16 12:00 12/03/16 11:59 Ondansetron HCl (Zofran) 4 mg Q6H PRN IVP Nausea & Vomiting 11/03/16 12:00 12/03/16 11:59 Polyethylene Glycol (Miralax) 17 gm DAILYPRN PRN ORAL Constipation 11/03/16 12:00 12/03/16 11:59 Spironolactone (Aldactone) 25 mg DAILY ORAL 11/04/16 09:00 12/04/16 08:59 11/07/16 10:35 Temazepam (Restoril) 15 mg DAILYPRN PRN ORAL Insomnia 11/03/16 12:00 11/10/16 11:59 Tramadol HCl (Ultram) 50 mg Q6H PRN ORAL Moderate Pain (Pain Scale 4-6) 11/03/16 12:00 11/10/16 11:59 MELA REBOLLEDO Nov 07, 2016 12:26
--- NOTE | 2016-11-07 13:40 | Internal Med Progress Note ---
Subjective Date of Service: Nov 07, 2016 Physician Name Martir Neal Attending Physician Kip Torres MD Current Medications Medications (Trade) Dose Ordered Sig/Lexii Route PRN Reason Start Time Stop Time Status Last Admin Dose Admin Acetaminophen (Tylenol) 650 mg Q4H PRN ORAL Mild Pain (Pain Scale 1-3) 11/03/16 12:00 12/03/16 11:59 Al Hydroxide/Mg Hydroxide (Mylanta II) 30 ml Q6H PRN ORAL dyspepsia 11/03/16 12:00 12/03/16 11:59 Albuterol/ Ipratropium (DuoNeb 0.5-3(2.5)mg/3ml) 3 ml Q6H PRN HHN Shortness of Breath 11/03/16 12:00 11/08/16 11:59 Amiodarone HCl (Cordarone) 200 mg DAILY ORAL 11/04/16 09:00 12/04/16 08:59 11/07/16 10:36 Apixaban (Eliquis) 5 mg BID ORAL 11/03/16 18:00 12/03/16 17:59 11/07/16 10:36 Aspirin (ASA) 81 mg DAILY ORAL 11/04/16 09:00 12/04/16 08:59 11/07/16 10:35 Carvedilol (Coreg) 3.125 mg EVERY 12 HOURS ORAL 11/03/16 21:00 12/03/16 20:59 11/07/16 10:44 Dextrose (Dextrose 50%) STAT PRN IV Hypoglycemia 11/03/16 12:15 12/03/16 12:14 Digoxin (Lanoxin) 0.125 mg DAILY ORAL 11/04/16 09:00 12/04/16 08:59 11/07/16 10:36 Furosemide (Lasix) 80 mg EVERY 12 HOURS IV 11/05/16 21:00 12/05/16 20:59 11/07/16 10:35 Insulin Aspart (NovoLOG) BEFORE MEALS AND HS SUBQ 11/03/16 16:30 12/03/16 16:29 11/06/16 21:25 Lisinopril (Zestril) 10 mg DAILY ORAL 11/04/16 09:00 12/04/16 08:59 11/07/16 10:36 Magnesium Chloride (Slow-Mag) 71.5 mg TWICE A DAY ORAL 11/05/16 14:30 12/05/16 14:29 11/07/16 10:36 Nitroglycerin (Ntg) 0.4 mg Q5M PRN SL Prn Chest Pain 11/03/16 12:00 12/03/16 11:59 Ondansetron HCl (Zofran) 4 mg Q6H PRN IVP Nausea & Vomiting 11/03/16 12:00 12/03/16 11:59 Polyethylene Glycol (Miralax) 17 gm DAILYPRN PRN ORAL Constipation 11/03/16 12:00 12/03/16 11:59 Spironolactone (Aldactone) 25 mg DAILY ORAL 11/04/16 09:00 12/04/16 08:59 11/07/16 10:35 Temazepam (Restoril) 15 mg DAILYPRN PRN ORAL Insomnia 11/03/16 12:00 11/10/16 11:59 Tramadol HCl (Ultram) 50 mg Q6H PRN ORAL Moderate Pain (Pain Scale 4-6) 11/03/16 12:00 11/10/16 11:59 Allergies: Coded Allergies: HYDROMORPHONE (Unverified Allergy, Unknown, 11/03/16) PIOGLITAZONE (Verified Allergy, Unknown, 11/03/16) Uncoded Allergies: HYDROMORPHINE (Allergy, Unknown, 11/03/16) ROS Limited/Unobtainable: No Constitutional: Reports: no symptoms HEENT: Reports: no symptoms Cardiovascular: Reports: chest pain Respiratory: Reports: shortness of breath Gastrointestinal/Abdominal: Reports: no symptoms Genitourinary: Reports: no symptoms Neurologic/Psychiatric: Reports: no symptoms Subjective 51 YO M admitted with shortness of breath and chest pain. Cover for Int Med-Dr Torres. Transfer to [facility] in [facility]. Await transfer to [facility]. Objective Last Vital Signs Date Time Temp Pulse Resp B/P Pulse Ox O2 Delivery O2 Flow Rate FiO2 11/07/16 10:44 76 147/81 11/07/16 08:03 20 Room Air 21 11/07/16 08:00 94.5 11/07/16 04:01 98 Intake and Output 11/06/16 11/07/16 19:00 07:00 Intake Total 300 ml Output Total 1800 ml Balance 300 ml -1800 ml Intake Oral 300 ml Output Urine Total 1800 ml # Voids 3 # Bowel Movements 2 Objective General Appearance: no apparent distress, alert, obese EENT: PERRL/EOMI, normal ENT inspection Neck: non-tender, normal alignment, supple Cardiovascular: normal peripheral pulses, normal rate, regular rhythm, no gallop/murmur, no JVD Respiratory/Chest: chest wall non-tender, crackles/rales, rhonchi - bilaterally , expiratory wheezing Abdomen: normal bowel sounds, non tender, soft, no organomegaly, no mass Extremities: normal range of motion, non-tender Edema: trace edema Neurologic: frontload driver II-XII grossly normal, no motor/sensory deficits Skin: normal pigmentation, warm/dry Assessment/Plan Problem List: (1) COPD (chronic obstructive pulmonary disease) Assessment & Plan: See pulmonary note. (2) Sleep apnea, obstructive (3) SOB (shortness of breath) (4) Atrial fibrillation Assessment & Plan: See cardiology note. Cont amiodarone and digoxin. Continue eliquis (5) Foot abscess, left Assessment & Plan: See podiatry consult. (6) Diabetes mellitus type II, uncontrolled Assessment & Plan: Continue novolog sliding scale. (7) HTN (hypertension) Assessment & Plan: Continue lisinopril. (8) Hypercholesteremia (9) Peripheral vascular disease (10) Morbid obesity with BMI of 60.0-69.9, adult (11) Chest pain Assessment & Plan: See cardiology note. (12) Acute exacerbation of CHF (congestive heart failure) Assessment & Plan: LVEF=10-15%. See cardiology note. ?AICD? (13) Cardiomyopathy Status: stable Assessment/Plan Transfer to [facility] today MARTIR NEAL Nov 07, 2016 13:40
--- NOTE | 2016-11-09 05:11 | Discharge Summary ---
Discharge Summary Hospital Course Date of Admission Nov 03, 2016 at 10:27 Date of Discharge Nov 07, 2016 at 14:40 Admitting Diagnosis chest pain HPI Miguel Pennington is a 51 year old male who was admitted on Nov 03, 2016 at 10:27 for Chest Pain Hospital Course [id number] Discharge Discharge Disposition Patient was discharged to SNF/Subacute Facility(03) Discharge Diagnoses: Elke Cunningham NP Nov 09, 2016 05:11
--- NOTE | 2016-11-09 14:47 | Discharge Summary 2 SIG ---
DATE OF ADMISSION: 11/03/2016 DATE OF DISCHARGE: 11/07/2016 CONSULTANTS: 1. Ann Gongora M.D. 2. Reddy Rodriguez M.D. 3. Mehdi Little M.D. 4. Jaylon Henderson DPM. 5. Baljit Irvin M.D. BRIEF HOSPITAL COURSE: The patient is a 51-year-old male, who was admitted to [facility] in [place] on 10/28/2016, admitted then for elevated troponin. He has history of dilated cardiomyopathy and was discharged to [facility]. He began to experience shortness of breath and chest pain. Chest pain was described to be located substernal with no radiation to the jaw or shoulder. He was given aspirin by EMS. The patient was then transported to [facility] for further evaluation. On workup at ED, the patient was tachycardic and was given metoprolol. Chest x-ray showed mild CHF with left pleural effusion. Troponin was negative. BNP was 6307. The patient has history of atrial fibrillation and was on Eliquis. He was admitted to telemetry for evaluation of shortness of breath and chest pain, CHF, and atrial fibrillation. There was also noted a left foot abscess and was seen by Podiatry, assessed to have resolving blisters with multiple areas of eschars. He was recommended daily wound care and offloading. He was started on Lasix drip and given lisinopril and Coreg. Echocardiogram showed EF of 10% to 15%. Aldactone was also added to his regimen. The patient has paroxysmal atrial fibrillation and was continued on amiodarone and Eliquis and digoxin. The patient will benefit from cardiac catheterization or ICD placement, but would not fit any procedure table for any procedures as the patient is over 400 pounds. Left foot ulcers colonized with MRSA. No antibiotic indicated. However, was advised if wound fails to heal over the next two to three weeks with good topical care and improved glycemic control, the patient would need repeat evaluation including MRI to check for osteomyelitis, however, this is not suspected at this time. Lasix drip was discontinued and was switched to IV. Troponins have been negative. Initially, had a plan for lateral transfer to [facility] at [place], however, no bed was available. The patient was then discharged to SNF. FINAL DIAGNOSES: 1. Acute on chronic congestive heart failure. 2. Chest pain, likely due to congestive heart failure. 3. Paroxysmal atrial fibrillation. 4. Morbid obesity. 5. Obstructive sleep apnea. 6. Left foot abscess. 7. Diabetes mellitus type 2, uncontrolled. 8. Hypertension. 9. Hypercholesterolemia. 10. Cardiomyopathy. 11. Left foot superficially colonized with methicillin-resistant Staphylococcus aureus. DISPOSITION: The patient was discharged to [facility]. DISCHARGE MEDICATIONS: Refer to medication list. Martir Vang M.D. I have been assigned to dictate discharge summary on this account and I was not involved in the patient's management. Elke Cunningham N.P. DR: ALBARO JOB#: [id number] CC: JOSE
== END 2016-11-07 14:40 | DRG 291 ==
LOC: EDBD 09:16 → EMR 09:24 → EDBEDREQ 09:58 → 2E 10:27
DX: I50.23 Acute on chronic systolic (congestive) heart failure (principal); L89.153 Pressure ulcer of sacral region, stage 3; Z68.44 Body mass index [BMI] 60.0-69.9, adult; I42.0 Dilated cardiomyopathy; E11.65 Type 2 diabetes mellitus with hyperglycemia; E66.01 Morbid (severe) obesity due to excess calories; I27.2 Other secondary pulmonary hypertension; L02.612 Cutaneous abscess of left foot; I48.0 Paroxysmal atrial fibrillation; I10 Essential (primary) hypertension; J44.9 Chronic obstructive pulmonary disease, unspecified; G47.33 Obstructive sleep apnea (adult) (pediatric); I44.0 Atrioventricular block, first degree; Z79.01 Long term (current) use of anticoagulants; I25.10 Atherosclerotic heart disease of native coronary artery without angina pectoris; E78.00 Pure hypercholesterolemia, unspecified; I73.9 Peripheral vascular disease, unspecified; B95.62 Methicillin resistant Staphylococcus aureus infection as the cause of diseases classified elsewhere; Z86.73 Personal history of transient ischemic attack (TIA), and cerebral infarction without residual deficits; I87.8 Other specified disorders of veins; Z90.49 Acquired absence of other specified parts of digestive tract; Z79.4 Long term (current) use of insulin
CPT/HCPCS: 36415; 36600; 71010; 80048; 80053; 80061; 80300; 82550; 82553; 82803; 82962; 83036; 83735; 83880; 84443; 84484; 85025; 87070; 87081; 87181; 87205; 93005; 93306; 94664; J1815; J2405